=== PATIENT | male | born 1985 | race African-American/Black ===

== ENCOUNTER 2017-11-16 14:05 | Emergency (ER) | payer OTHER ==
[~2017-11-16] VITALS: Ht 144.8 cm; Wt 85.3 kg
[~2017-11-16 14:05] MED LIST: ASPIRIN325 MG PO; ATORVASTATIN CA20 MG PO; Albuterol/Ipratropium Nebulize NEB; CARVEDILOL12.5 MG PO; CARVEDILOL25 MG PO; COREG12.5 MG PO; DIGOXIN125 MCG PO; FAMOTIDINE40 MG PO; FUROSEMIDE40 MG PO; Fluticasone Propionate NS; IBUPROFEN400 MG PO; LASIX20 MG PO; LASIX40 MG PO; LISINOPRIL10 MG PO; LISINOPRIL2.5 MG PO; MEDROL4 MG/DOSE- PO; NITRO-BID1 GM TOP; PEPCID20 MG PO; POTASSIUM CHLO10 ME1 PO; PRINIVIL10 MG PO; [UNRECOGNIZED DRUG - REMARK]
--- OUTSIDE RECORDS SUMMARY | 2017-11-16 14:08 | XMS REPORT ---
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 Allergies, Adverse Reactions, Alerts This patient has no known allergies or adverse reactions. Medications This patient has no known medications. Results Test Description Test Time Test Comments Text Results Atomic Results Result Comments Stress Test - Treadmill ONLY [address] [address] Patient Name : ROXY CARREON MR #: [id number] : 1985 Age/Sex: 31/M Adm Physician : OSIRIS PRICE MD Admit Date : 08/11/17 Location : [facility] Room/Bed : [place] [address] REPORT: Cardiology Report DATE OF STUDY: August 13, 2017 LEXISCAN NUCLEAR STRESS TEST INDICATIONS: Chest pain. DESCRIPTION OF PROCEDURE: After informed consent patient was brought to the stress lab. He was given 10.6 mCi of technetium 99 Myoview, and myocardial perfusion and SPECT images were obtained in the horizontal long-axis, short- axis and vertical long-axis views. Subsequently, patient was given 0.4 mg Lexiscan over 10 seconds. Patient was given 33 mCi of technetium 99 Myoview , and myocardial perfusion SPECT images were obtained in the horizontal long- axis, short-axis and vertical long-axis views. Gated images were also obtained. Patient tolerated the procedure without any complication. REPORT: Baseline EKG shows sinus tachycardia at 105 beats per minute, normal axis, normal intervals, nonspecific ST-T changes. PARAMETERS 1. Resting heart rate is 103 beats per minute. 2. Maximum heart rate is 123 beats per minute. 3. Resting blood pressure is 100/55 mmHg. 4. Maximum blood pressure and 105/60 mmHg. REASON FOR TERMINATION: End point attained. INTERPRETATION 1. Negative chest pain. 2. Negative for arrhythmias. 3. Blood pressure response consistent with Lexiscan. 4. No significant ST-T changes seen during Lexiscan infusion compared to baseline. 5. Analysis of SPECT images reveals patchy radioisotope uptake. both during stress and rest without any significant perfusion defects. CONCLUSION: 1. No evidence significant ischemia or infarction on the study. 2. Mild hypokinesis of the left ventricle is noted. 3. Overall ejection fraction is 47%. Job#: [id number] Signature Date Dictated By: TO VILLAVICENCIO MD Transcribed By: JEMIMA on 08/13/17 <Electronically signed by TO VILLAVICENCIO MD><<Signature on File>>08/19/17 0716 COPY TO: CHEST SINGLE (PORTABLE) [place] [address] Patient Name: ROXY CARREON MR #: [id number] : 1985 Age/Sex: 31/M Req #: [id number] Adm Physician: Ordered by: ROCKY BRUNO MD Report #: [id number] Location: ER Room/Bed: Procedure: [id number] DX/CHEST SINGLE (PORTABLE) Exam Date: 08/11/17 Exam Time: 1020 REPORT STATUS: Signed PROCEDURE: CHEST SINGLE (PORTABLE) COMPARISON: 09/14/2016. INDICATIONS: CHEST PAIN FINDINGS: Lungs are reasonably well inflated. Diffuse interstitial opacities. Cardiomegaly is unchanged relative to 09/14/2016. No definite pleural effusion. Skeletal structures are intact. CONCLUSION: Cardiomegaly with interstitial opacities, likely edema, similar in degree to that noted on 09/14/2016. Dictated by: Radha Schmidt M.D. on 2016 at 11:09 Electronically approved by: Radha Schmidt M.D. on 2016 at 11:09 Dictated By: RADHA SCHMIDT MD [id number] Transcribed By: RUDDY on 08/11/17 1109 COPY TO: ROCKY BRUNO MD
[2017-11-16] MEDS ORDERED: PANTOPRAZOLE 40 MG 10ML VIAL IV STA (14:22)
[2017-11-16] MEDS ORDERED: GLUCAGON FOR INJ 1 MG VIAL IV ONE (14:30)
[2017-11-16 15:19] LABS: BASOPHILS % 0.7 % (0.0-1.0); EOSINOPHILS # (AUTO) 0.1 (0.0-0.4); LYMPHOCYTES # (AUTO) 2.4 (1.0-3.2); LYMPHOCYTES % 43.9 % (18.0-39.1); MEAN CORPUSCULAR HEMOGLOBIN 27.6 pg (28-32); MEAN CORPUSCULAR HGB CONC 32.7 g/dL (31-35); MEAN CORPUSCULAR VOLUME 84.6 fL (81-99); MONOCYTES # (AUTO) 0.5 (0.2-0.8); MONOCYTES % 9.5 % (4.4-11.3); NEUTROPHILS # (AUTO) 2.4 (2.1-6.9); NEUTROPHILS % 43.9 % (38.7-80.0); PLATELET COUNT 279 x10e3/uL (140-360); RED BLOOD COUNT 5.79 x10e6/uL (4.3-5.7); RED CELL DISTRIBUTION WIDTH 14.8 % (11.7-14.4)
[2017-11-16 15:32] LABS: PARTIAL THROMBOPLASTIN TIME 31.7 seconds (23.8-35.5)
[2017-11-16 15:37] LABS: ANION GAP 13.3 mmol/L (8-16); BLOOD UREA NITROGEN 9 mg/dL (7-26); BUN/CREATININE RATIO 13 (6-25); CALCIUM 9.6 mg/dL (8.4-10.2); CARBON DIOXIDE 24 mmol/L (22-29); CHLORIDE 101 mmol/L (98-107); CREATININE, SERUM 0.71 mg/dL (0.72-1.25); EST GLOMERULAR FILTRATION RATE > 60 ML/MIN (60-); GLUCOSE 99 mg/dL (74-118); SODIUM 133 mmol/L (136-145)
[2017-11-16 15:38] LABS: INR 1.28
[2017-11-16 15:39] LABS: POTASSIUM 5.3 mmol/L (3.5-5.1)
[2017-11-16] MEDS ORDERED: AMOXICILLIN250 MG PO (16:22)
[2017-11-16] MEDS ORDERED: lipozene PO (16:22)
[2017-11-16] MEDS ORDERED: TYLENOL WITH C1 EACH PO (16:22)
[2017-11-16] MEDS ORDERED: MORPHINE SULFATE 2 MG/ML SYR IV PRN (17:00)
[2017-11-16] MEDS ORDERED: FENTANYL CITRATE/PF 100MCG/2 ML INJ ONE (17:31)
[2017-11-16] MEDS ORDERED: MIDAZOLAM HCL 2 MG/2 ML VIAL ONE (17:31)
[2017-11-16] MEDS: D5.45%NS/KCL 20MEQ 1,000 ML IV SCH ×2 (17:34→17:40)
[2017-11-16] MEDS: ONDANSETRON HCL INJ 2 MG/ML VIAL IV PRN ×2 (17:35→21:20)
[2017-11-16] MEDS ORDERED: SODIUM CHLORIDE 0.9% 1000ML 1,000 ML IV SCH (17:45)
[2017-11-16] MEDS ORDERED: IBUPROFEN 600 MG TAB PO SCH (18:00)
--- NOTE | 2017-11-16 18:02 | Diagnostic Imaging Report ---
EXAMINATION: Chest, CHEST SINGLE (PORTABLE) INDICATION: Chest pain COMPARISON: Portable chest 08/11/2017 FINDINGS: LINES: None. Heart: Normal cardiac silhouette. Vascular: The pulmonary vasculature is within normal limits. Mediastinum: No mediastinal, hilar, or axillary mass or lymphadenopathy. Lungs: No parenchymal mass. No focal consolidation. Bibasilar atelectasis. Pleura: No pleural effusion. No pneumothorax. Bones: No acute osseous abnormality. Soft tissues: Normal. Impression: No acute radiographic abnormality. Signed by: Dr. Shin Cedillo M.D. on 11/16/2017 5:58 PM
[2017-11-16] MEDS ORDERED: FUROSEMIDE INJ 10 MG/ML 4 ML VIAL IV ONE (18:15)
--- NOTE | 2017-11-16 18:21 | History and Physical ---
PRIMARY CARE PHYSICIAN: Dr. Richy Mota CHIEF COMPLAINT: Painful swallowing. 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 Therefore, the patient came to the hospital. GI services have been consulted. The patient was admitted for further evaluation and management. PAST MEDICAL HISTORY: Hypertension, congestive heart failure, bronchitis, Leong syndrome, paroxysmal atrial fibrillation. PAST SURGICAL HISTORY: Leg and foot surgery. ALLERGIES: PER ELECTRONIC MEDICAL RECORD. FAMILY HISTORY/SOCIAL HISTORY: Patient denies any alcohol, illicits or cigarettes. He lives with his family. He ambulates with a cane. MEDICATIONS: Per electronic medical records. REVIEW OF SYSTEMS: Denies any dizziness or chest pain. PHYSICAL EXAMINATION VITAL SIGNS: Reviewed. GENERAL: A tired-appearing man resting in bed. HEENT: Anicteric. Pupils respond to light. No oral lesions. CARDIOVASCULAR: Normal S1 and S2. LUNGS: He has slightly reduced breath sounds on the right lung field. ABDOMEN: Soft, nontender and nondistended. EXTREMITIES: No edema. SKIN: Dry. PSYCHIATRIC: Normal affect. NEUROLOGICAL: Alert and oriented times 3. Moving all extremities. LABS: Reviewed. MEDICATIONS: Reviewed. ASSESSMENT AND PLAN: A 31-year-old man with: 1. Odynophagia/dysphagia: Gastroenterology consulted. Likely food impaction from the fruit he was eating. 2. Food impaction: As described above. 3. Hypertension: Control blood pressure with intravenous medicines until the airway is clear. 4. Congestive heart failure: Patient appears to be euvolemic. 5. Hyperkalemia: Will recheck and treat as appropriate. 6. Prophylaxis: Will continue proton pump inhibitor and sequential compression devices. 7. Disposition: Await gastroenterology evaluation. Will need esophagogastroduodenoscopy. Job#: [id number]
[2017-11-16] MEDS ORDERED: ATORVASTATIN 20 MG TAB PO SCH (21:00)
[2017-11-16 23:21] VITALS: BP 135/54
[2017-11-17] MEDS ORDERED: FAMOTIDINE 20 MG TAB PO SCH (07:30)
[2017-11-17] MEDS ORDERED: CARVEDILOL 12.5 MG TAB PO SCH (09:00)
[2017-11-17] MEDS ORDERED: ASPIRIN 325 MG TAB PO SCH (09:00)
[2017-11-17] MEDS ORDERED: LISINOPRIL 10 MG TAB PO SCH (09:00)
[2017-11-17] MEDS ORDERED: FUROSEMIDE 40 MG TAB PO SCH (09:00)
[2017-11-17] MEDS ORDERED: POTASSIUM CHLORIDE 10 MEQ TABCR PO SCH (09:00)
== END 2017-11-16 23:24 | disposition short-term general hospital (02) ==
LOC: ER 14:13
DX: T18.128A Food in esophagus causing other injury, initial encounter (principal); X58.XXXA Exposure to other specified factors, initial encounter; Y92.008 Other place in unspecified non-institutional (private) residence as the place of occurrence of the external cause; Q74.8 Other specified congenital malformations of limb(s); I10 Essential (primary) hypertension; I50.9 Heart failure, unspecified; I48.91 Unspecified atrial fibrillation
CPT/HCPCS: 36415; 71045; 80048; 85025; 85610; 85730; 93005; 99284; J1610; J2250; J2270; J2405; J7030

== ENCOUNTER 2017-12-16 22:54 | Inpatient (IN) | payer OTHER ==
[~2017-12-16] VITALS: Ht 144.8 cm; Wt 85.3 kg
[~2017-12-16 22:54] MED LIST changes: +AMOXICILLIN250 MG PO; +TYLENOL WITH C1 EACH PO; +lipozene PO
--- OUTSIDE RECORDS SUMMARY | 2017-12-16 22:57 | XMS REPORT | Continuity of Care Document ---
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 No 08/11/17 6:01pm If yes, is advance directive on file with [facility]? No 08/11/17 6:01pm If not on file with [facility] will patient provide a copy? No 08/11/17 6:01pm Do you have a Directive to Physician? No 11/16/17 3:00pm Do you have a Medical Power of Senior Climate Advisor? No 11/16/17 3:00pm Do you have an out of hospital Do Not Resuscitate Order? No 11/16/17 3:00pm Do you have any special needs we should be aware of? No 11/16/17 3:00pm Do you have a support person here with you today? No 11/16/17 3:00pm Did patient receive Notice of Privacy Practices? Yes 11/16/17 3:00pm Did patient receive patient rights and responsibilities? Yes 11/16/17 3:00pm Problems Medical Problem Onset Date Status Atrial fibrillation 07/20/2015 Acute CHF (congestive heart failure) Unknown Cerumen impaction Unknown Acute Chest pain 03/16/2015 Acute Leong's syndrome 03/16/2015 Acute Pulmonary edema 08/28/2015 Acute Medications Current Home Medications Medication Dose Units Route Directions Days Qty Instructions Start Date Acetaminophen With Codeine (Tylenol With Codeine #3 Tablet) 1 Each Tablet 300 Mg Oral Every 4 Hours Amoxicillin 250 Mg Capsule 500 Mg Oral Three Times A Day 30 Cap Aspirin 325 Mg Tablet 325 Mg Oral Daily Atorvastatin Calcium 20 Mg Tablet 20 Mg Oral Today At 9:00PM Carvedilol (Coreg) 12.5 Mg Tab 25 Mg Oral Twice A Day 30 Days 08/31 Famotidine (Pepcid) 20 Mg Tablet 20 Mg Oral Before Breakfast 30 Days 08/31/15 Furosemide 40 Mg Tablet 40 Mg Oral Twice A Day 30 Tab Ibuprofen 400 Mg Tablet 600 Mg Oral Every 6 Hours for Pain Lipozene 1,500 Mg Oral Daily Lisinopril 10 Mg Tablet 10 Mg Oral Daily 30 Tab Nitroglycerin (Nitro-Bid) 1 Gm Oint...g. 1 Gm Topically Every 12 Hours 14 Days 10 Gram 07/18/16 Potassium Chloride 10 Meq Tab.er.prt 10 Meq Oral Twice A Day Past Home Medications Medication Directions Ordered Status Albuterol/Ipratropium Nebulize 3 Ml Inha, 3 Ml Nebullizer Rt Q6h 09/15/16 Discontinued Carvedilol 25 Mg Tablet, 25 Mg Oral Twice A Day Discontinued Carvedilol (Coreg) 12.5 Mg Tab, 12.5 Mg Oral Twice A Day 07/22/15 Discontinued Carvedilol 12.5 Mg Tablet, 6.25 Mg Oral Twice A Day Discontinued Digoxin 125 Mcg Tablet, 0.125 Mg Oral Daily Discontinued Does Not Remember Names Of Meds , Discontinued Famotidine 40 Mg Tablet, 40 Mg Oral Daily Discontinued Fluticasone Propionate 1 Ea Btl, 0 Ea Nasal Every Morning 07/22/15 Discontinued Furosemide (Lasix) 20 Mg Tablet, 20 Mg Oral Daily 07/22/15 Discontinued Furosemide (Lasix) 40 Mg Tablet, 40 Mg Oral Twice A Day 08/31/15 Discontinued Furosemide (Lasix) 40 Mg Tablet, 40 Mg Oral Daily Discontinued Lisinopril (Prinivil) 10 Mg Tablet, 5 Mg Oral Daily 07/22/15 Discontinued Lisinopril 10 Mg Tablet, 20 Mg Oral Daily Discontinued Lisinopril 2.5 Mg Tablet, 2.5 Mg Oral Twice A Day Discontinued Methylprednisolone (Medrol Dose Pack) 4 Mg/Dose Pack Tab, 1 Pkt Oral Daily Discontinued Social History Social History Problem Response Recorded Date/Time Onset Date Status Hx Psychiatric Problems No 08/11/2017 6:01pm Not Applicable Not Applicable Hx Eating Disorder No 08/11/2017 6:01pm Not Applicable Not Applicable Hx Substance Use Disorder No 08/11/2017 6:01pm Not Applicable Not Applicable Hx Depression No 08/11/2017 6:01pm Not Applicable Not Applicable Hx Alcohol Use No 08/11/2017 6:01pm Not Applicable Not Applicable Hx Substance Use Treatment No 08/11/2017 6:01pm Not Applicable Not Applicable Hx Physical Abuse No 08/11/2017 6:01pm Not Applicable Not Applicable Smoking Status Start Date Stop Date Never Smoker Hospital Discharge Instructions No hospital discharge instruction information available. Plan of Care Discharge Date 11/16/17 11:24pm Disposition TRANS TO OTHER [facility] Condition at Discharge Stable Forms Provided Work/School Excuse Prescriptions See Medication Section Functional Status No functional status information available. Allergies, Adverse Reactions, Alerts No known allergies. Immunizations No immunization information available. Vital Signs Acute Vital Signs Vital Response Date/Time Temperature (Fahrenheit) 98.4 degrees F (97.6 - 99.5) 11/16/2017 11:21pm Pulse Pulse Rate (adult) 85 bpm (60 - 90) 11/16/2017 11:21pm Respiratory Rate 20 bpm (12 - 24) 11/16/2017 11:21pm Blood Pressure 135/54 mm Hg 11/16/2017 11:21pm Height 4 ft 9 in 11/16/2017 2:07pm Weight 188 lb 11/16/2017 2:07pm Body Mass Index 40.7 kg/m^2 11/16/2017 2:07pm Results Laboratory Results Test Name Result Units Flags Reference Collection Date/Time Result Date/ Time Comments Magnesium Level 1.7 MG/DL 1.3-2.1 08/12/2017 6:40am 08/12/2017 7:27am Total Bilirubin 0.2 mg/dL 0.2-1.2 08/11/2017 10:45am 08/11/2017 11: 09am Aspartate Amino Transf (AST/SGOT) 26 IU/L 5-34 08/11/2017 10:45am 08/11 11:09am Alanine Aminotransferase (ALT/SGPT) 20 IU/L 0-55 08/11/2017 10:45am 03/2017 11:09am Total Protein 8.8 g/dL H 6.5-8.1 08/11/2017 10:45am 08/11/2017 11:09am Albumin 4.0 g/dL 3.5-5.0 08/11/2017 10:45am 08/11/2017 11:09am Globulin 4.8 g/dL H 2.3-3.5 08/11/2017 10:45am 08/11/2017 11:09am Albumin/Globulin Ratio 0.8 0.8-2.0 08/11/2017 10:45am 08/11/2017 11: 09am Alkaline Phosphatase 82 IU/L 40-150 08/11/2017 10:45am 08/11/2017 11: 09am Triglycerides Level 88 MG/DL 0-149 08/12/2017 6:40am 08/12/2017 7:27am Cholesterol Level 181 MD/DL 0-199 08/12/2017 6:40am 08/12/2017 7:27am Less than 200 mg/dL Low Risk 201 - 239 mg/dL Borderline Risk 240 mg/dl and greater High Risk LDL Cholesterol 129 MG/DL 60-130 08/12/2017 6:40am 08/12/2017 7:27am HDL Cholesterol 34 MG/DL L 40-60 08/12/2017 6:40am 08/12/2017 7:27am Cholesterol/HDL Ratio 5.3 H 3.9-4.7 08/12/2017 6:40am 08/12/2017 7: 27am B-Type Natriuretic Peptide < 10.0 pg/mL 0-100 08/11/2017 6:30pm 2016 7:22pm Creatine Kinase 195 IU/L 30-200 08/12/2017 6:40am 08/12/2017 7:27am Creatine Kinase MB 1.20 ng/mL 0.00-5.00 08/12/2017 6:40am 08/12/2017 7: 45am Troponin I < 0.001 ng/mL 0-0.300 08/12/2017 6:40am 08/12/2017 7:45am Thyroid Stimulating Hormone (TSH) 1.336 uIU/mL 0.350-4.940 08/12/2017 6: 40am 08/12/2017 7:45am White Blood Count 5.37 x10e3/uL 4.8-10.8 11/16/2017 3:08pm 11/16/2017 3 :22pm Red Blood Count 5.79 x10e6/uL H 4.3-5.7 11/16/2017 3:08pm 11/16/2017 3: 22pm Hemoglobin 16.0 g/dL 14.0-18.0 11/16/2017 3:08pm 11/16/2017 3:22pm Hematocrit 49.0 % 38.2-49.6 11/16/2017 3:08pm 11/16/2017 3:22pm Mean Corpuscular Volume 84.6 fL 81-99 11/16/2017 3:08pm 11/16/2017 3: 22pm Mean Corpuscular Hemoglobin 27.6 pg L 28-32 11/16/2017 3:08pm 2017 3:22pm Mean Corpuscular Hemoglobin Concent 32.7 g/dL 31-35 11/16/2017 3:08pm 11/16/2017 3:22pm Red Cell Distribution Width 14.8 % H 11.7-14.4 11/16/2017 3:08pm 2017 3:22pm Platelet Count 279 x10e3/uL 140-360 11/16/2017 3:08pm 11/16/2017 3: 22pm Neutrophils (%) (Auto) 43.9 % 38.7-80.0 11/16/2017 3:08pm 11/16/2017 3: 22pm Lymphocytes (%) (Auto) 43.9 % H 18.0-39.1 11/16/2017 3:08pm 11/16/2017 3 :22pm Monocytes (%) (Auto) 9.5 % 4.4-11.3 11/16/2017 3:08pm 11/16/2017 3: 22pm Eosinophils (%) (Auto) 2.0 % 0.0-6.0 11/16/2017 3:08pm 11/16/2017 3: 22pm Basophils (%) (Auto) 0.7 % 0.0-1.0 11/16/2017 3:08pm 11/16/2017 3:22pm IM GRANULOCYTES % 0.0 % 0.0-1.0 11/16/2017 3:08pm 11/16/2017 3:22pm Neutrophils # (Auto) 2.4 2.1-6.9 11/16/2017 3:08pm 11/16/2017 3:22pm Lymphocytes # (Auto) 2.4 1.0-3.2 11/16/2017 3:08pm 11/16/2017 3:22pm Monocytes # (Auto) 0.5 0.2-0.8 11/16/2017 3:08pm 11/16/2017 3:22pm Eosinophils # (Auto) 0.1 0.0-0.4 11/16/2017 3:08pm 11/16/2017 3:22pm Basophils # (Auto) 0.0 0.0-0.1 11/16/2017 3:08pm 11/16/2017 3:22pm Absolute Immature Granulocyte (auto 0 x10e3/uL 0-0.1 11/16/2017 3:08pm 11/16/2017 3:22pm Prothrombin Time 15.0 seconds H 11.9-14.5 11/16/2017 3:08pm 11/16/2017 3 :39pm Prothromb Time International Ratio 1.28 11/16/2017 3:08pm 2017 3:39pm Oral Anticoagulant Therapy INR Values: 1. Low Intensity Therapy 1.5 - 2.0 2. Moderate Intensity Therapy 2.0 - 3.0 3. High Intensity Therapy(1) 2.5 - 3.5 4. High Intensity Therapy(2) 3.0 - 4.0 5. Panic Value INR > 5.0 Activated Partial Thromboplast Time 31.7 seconds 23.8-35.5 11/16/2017 3: 08pm 11/16/2017 3:39pm Sodium Level 133 mmol/L L 136-145 11/16/2017 3:08pm 11/16/2017 3:39pm Potassium Level 5.3 mmol/L H 3.5-5.1 11/16/2017 3:08pm 11/16/2017 3: 39pm SLIGHTLY HEMOLYZED Chloride Level 101 mmol/L 98-107 11/16/2017 3:08pm 11/16/2017 3:39pm Carbon Dioxide Level 24 mmol/L 22-29 11/16/2017 3:08pm 11/16/2017 3: 39pm Anion Gap 13.3 mmol/L 8-16 11/16/2017 3:08pm 11/16/2017 3:39pm Blood Urea Nitrogen 9 mg/dL 7-11/16/2017 3:08pm 11/16/2017 3:39pm Creatinine 0.71 mg/dL L 0.72-1.25 11/16/2017 3:08pm 11/16/2017 3:39pm BUN/Creatinine Ratio 13 6-25 11/16/2017 3:08pm 11/16/2017 3:39pm Estimat Glomerular Filtration Rate > 60 ML/MIN 60- 11/16/2017 3:08pm 3:39pm Ranges were taken from the National Kidney Disease Education Program and the National Kid[employer] Foundation literature. Reference ranges: 60 or greater: Normal 16-59 (for 3 consecutive months): Chronic kidney disease 15 or less: Kidney failure Glucose Level 99 mg/dL 74-118 11/16/2017 3:08pm 11/16/2017 3:39pm Calcium Level 9.6 mg/dL 8.4-10.2 11/16/2017 3:08pm 11/16/2017 3:39pm Procedures No procedure information available. Encounters Encounter Location Arrival/Admit Date Discharge/Depart Date Attending Provider Departed Emergency Room [facility] 11/16/17 2:13pm 11:24pm ROCKY BRUNO MD Discharged Inpatient (obs) [facility] 08/11/17 4:32pm 06/22 5:44pm OSIRIS PRICE MD
[2017-12-16] MEDS ORDERED: PANTOPRAZOLE 40 MG 10ML VIAL IV STA (23:22)
[2017-12-16] MEDS ORDERED: MORPHINE SULFATE 2 MG/ML SYR IV STA (23:22)
[2017-12-16] MEDS ORDERED: SODIUM CHLORIDE 0.9% 1000ML 1,000 ML IV STA (23:22)
[2017-12-16] MEDS ORDERED: ONDANSETRON HCL INJ 2 MG/ML VIAL IV STA (23:22)
[2017-12-16 23:48] LABS: BASOPHILS % 0.6 % (0.0-1.0); EOSINOPHILS # (AUTO) 0.1 (0.0-0.4); EOSINOPHILS % 1.3 % (0.0-6.0); HEMATOCRIT 46.3 % (38.2-49.6); HEMOGLOBIN 15.2 g/dL (14.0-18.0); LYMPHOCYTES # (AUTO) 2.2 (1.0-3.2); LYMPHOCYTES % 40.7 % (18.0-39.1); MEAN CORPUSCULAR HEMOGLOBIN 27.4 pg (28-32); MEAN CORPUSCULAR HGB CONC 32.8 g/dL (31-35); MEAN CORPUSCULAR VOLUME 83.4 fL (81-99); MONOCYTES # (AUTO) 0.4 (0.2-0.8); MONOCYTES % 7.9 % (4.4-11.3); NEUTROPHILS # (AUTO) 2.7 (2.1-6.9); NEUTROPHILS % 49.3 % (38.7-80.0); PLATELET COUNT 281 x10e3/uL (140-360); RED BLOOD COUNT 5.55 x10e6/uL (4.3-5.7); RED CELL DISTRIBUTION WIDTH 15.2 % (11.7-14.4)
[2017-12-16 23:57] LABS: INR 1.18; PROTHROMBIN TIME 14.1 seconds (11.9-14.5)
[2017-12-16 23:58] LABS: PARTIAL THROMBOPLASTIN TIME 28.6 seconds (23.8-35.5)
[2017-12-17] VITALS (7 sets, daily range): BP systolic 95–142; BP diastolic 48–72
[2017-12-17 00:10] LABS: ALANINE AMINOTRANSFERASE 14 IU/L (0-55); ALBUMIN 4.4 g/dL (3.5-5.0); ALBUMIN/GLOBULIN RATIO 1.2 (0.8-2.0); ALKALINE PHOSPHATASE 85 IU/L (40-150); AMYLASE 33 U/L (25-125); ANION GAP 12.3 mmol/L (8-16); BLOOD UREA NITROGEN 5 mg/dL (7-26); BUN/CREATININE RATIO 8 (6-25); CARBON DIOXIDE 28 mmol/L (22-29); CHLORIDE 99 mmol/L (98-107); CREATINE KINASE 164 IU/L (30-200); CREATININE, SERUM 0.63 mg/dL (0.72-1.25); EST GLOMERULAR FILTRATION RATE > 60 ML/MIN (60-); GLUCOSE 96 mg/dL (74-118); LIPASE 19 U/L (8-78); MAGNESIUM 1.4 MG/DL (1.3-2.1); POTASSIUM 3.3 mmol/L (3.5-5.1); SODIUM 136 mmol/L (136-145)
[2017-12-17 00:11] LABS: KETONES,URINE TRACE (NEGATIVE); LEUKOCYTE ESTERASE ,URINE 1+ (NEGATIVE); NITRITE,URINE NEGATIVE (NEGATIVE); URINE UROBILINOGEN 0.2 mg/dL (0.2 - 1)
[2017-12-17 00:16] LABS: BILIRUBIN,URINE 1+ (NEGATIVE); CLARITY,URINE SL CLOUDY (CLEAR); COLOR,URINE YELLOW (YELLOW); PROTEIN,URINE DIPSTICK 1+ (NEGATIVE)
[2017-12-17 00:39] LABS: EPITHELIAL CELLS,URINE FEW /LPF; MUCUS,URINE FEW (RARE); RBC,URINE 0-5 /HPF (0-5)
--- NOTE | 2017-12-17 01:02 | Diagnostic Imaging Report ---
CHEST SINGLE (PORTABLE), 12/16/2017 11:22 PM Technique: CHEST SINGLE (PORTABLE) Comparison: 11/16/2017 Clinical history: Abdominal/chest pain Findings: Limited portable view with likely underlying soft tissue attenuation. Stable cardiomediastinal silhouette. Diffuse hazy bilateral opacities are noted. Layering pleural fluid not excluded. Impression: Diffuse bilateral hazy opacities which could reflect edema or infection. Consider follow-up upright PA and lateral. Signed by: Dr Alison Cummings MD on 12/17/2017 12:59 AM
[2017-12-17] MEDS: CLINDAMYCIN PHOS 900MG/ D5W 50 50 ML IV SCH ×2 (02:00→06:06)
[2017-12-17] MEDS ORDERED: POTASSIUM CHLORIDE 20MEQ/15ML UDC PO STA (02:05)
[2017-12-17] MEDS ORDERED: NITROGLYCERIN 0.4 MG SUBL SL PRN (02:15)
[2017-12-17] MEDS ORDERED: MORPHINE SULFATE 2 MG/ML SYR IV PRN (02:15)
[2017-12-17] MEDS ORDERED: ONDANSETRON HCL INJ 2 MG/ML VIAL IV PRN (02:15)
[2017-12-17] MEDS: LEVOFLOXACIN 500MG/D5W 100ML 100 ML IV SCH ×2 (02:26→08:44)
--- NOTE | 2017-12-17 02:39 | Diagnostic Imaging Report ---
EXAM: US GALLBLADDER DATE: 12/17/2017 2:00 AM INDICATION: \S\ABD PAIN, COMPARISON: None TECHNIQUE: Transverse and longitudinal sauceda scale and color doppler sonographic images of the upper abdomen were obtained. FINDINGS: LIVER 16.8 cm in the right midclavicular line, enlarged. Increased echogenicity, normal contour, no masses. GALLBLADDER No stones, sludge, wall-thickening or pericholecystic fluid. Negative sonographic Dooley's sign. BILE DUCTS No intra nor extra-hepatic biliary dilation. Common bile duct measures 0.2 cm PANCREAS: Visualized portions are normal. RIGHT KIDNEY: 9.8 cm Echogenicity: Normal Collecting System: No hydronephrosis Stones: None Cyst/Mass: None VESSELS: Aorta: Visualized portions are within normal size limits Inferior Vena Cava: Visualized portions are normal Main Portal Vein: 0.8 cm, normal size with hepatopetal flow. FREE FLUID: None IMPRESSION: 1. No cholelithiasis or evidence of acute cholecystitis. 2. Hepatic steatosis with hepatomegaly. Signed by: Dr Alison Cummings MD on 12/17/2017 2:36 AM
[2017-12-17] MEDS ORDERED: SODIUM CHLORIDE 0.9% 250ML 250 ML ONE (05:42)
[2017-12-17] MEDS ORDERED: ALBUTEROL/IPRATROPIUM 3 ML NEB NEB SCH (08:30)
[2017-12-17] MEDS: CARVEDILOL 12.5 MG TAB PO SCH ×2 (08:44→16:23)
[2017-12-17] MEDS: GUAIFENESIN 600MG/DEXTROMETHORPHAN 30MG TABSR PO SCH ×3 (08:44→17:04)
[2017-12-17] MEDS: FUROSEMIDE 40 MG TAB PO SCH ×2 (08:44→16:27)
[2017-12-17] MEDS: POTASSIUM CHLORIDE 10 MEQ TABCR PO SCH ×2 (08:44→16:27)
[2017-12-17] MEDS: PANTOPRAZOLE SOD 40 MG TABEC PO SCH ×2 (08:44→16:27)
[2017-12-17] MEDS: LISINOPRIL 10 MG TAB PO SCH (08:44)
[2017-12-17] MEDS: ASPIRIN 325 MG TAB PO SCH (08:44)
[2017-12-17] MEDS ORDERED: ASPIRIN 81 MG ENTERIC COATED PO SCH (09:00)
[2017-12-17] MEDS ORDERED: PANTOPRAZOLE 40 MG 10ML VIAL IV SCH (09:00)
[2017-12-17 09:05] LABS: CREATINE KINASE 113 IU/L (30-200)
[2017-12-17] MEDS ORDERED: POTASSIUM CHLORIDE 20 MEQ TAB CR PO STA (10:10)
[2017-12-17] MEDS ORDERED: ACETAMINOPHEN 325 MG TAB PO PRN (16:15)
[2017-12-17 17:12] LABS: CREATINE KINASE 94 IU/L (30-200)
[2017-12-17] MEDS ORDERED: ATORVASTATIN 20 MG TAB PO SCH (21:00)
[2017-12-18] VITALS: BP 103/70
[2017-12-18] MEDS: GUAIFENESIN 600MG/DEXTROMETHORPHAN 30MG TABSR PO SCH ×3 (00:20→11:08)
[2017-12-18 04:00] VITALS: BP 106/58
[2017-12-18 07:06] LABS: ALANINE AMINOTRANSFERASE 11 IU/L (0-55); ALBUMIN 3.7 g/dL (3.5-5.0); ALKALINE PHOSPHATASE 69 IU/L (40-150); ANION GAP 11.6 mmol/L (8-16); BLOOD UREA NITROGEN 13 mg/dL (7-26); BUN/CREATININE RATIO 17 (6-25); CALCIUM 8.6 mg/dL (8.4-10.2); CARBON DIOXIDE 26 mmol/L (22-29); CHLORIDE 103 mmol/L (98-107); CHOL/HDL RATIO 4.5 (3.9-4.7); CHOLESTEROL 153 MD/DL (0-199); CREATININE, SERUM 0.78 mg/dL (0.72-1.25); EST GLOMERULAR FILTRATION RATE > 60 ML/MIN (60-); GLUCOSE 105 mg/dL (74-118); HDL CHOLESTEROL 34 MG/DL (40-60); LDL CHOLESTEROL 101 MG/DL (60-130); MAGNESIUM 1.4 MG/DL (1.3-2.1); POTASSIUM 3.6 mmol/L (3.5-5.1); SODIUM 137 mmol/L (136-145); TRIGLYCERIDES 88 MG/DL (0-149)
[2017-12-18 07:29] VITALS: BP 102/55
[2017-12-18 07:30] VITALS: BP 102/55
[2017-12-18] MEDS: LISINOPRIL 10 MG TAB PO SCH (07:45)
[2017-12-18] MEDS: CARVEDILOL 12.5 MG TAB PO SCH (07:45)
[2017-12-18] MEDS: PANTOPRAZOLE SOD 40 MG TABEC PO SCH (08:01)
[2017-12-18] MEDS: LEVOFLOXACIN 500MG/D5W 100ML 100 ML IV SCH (08:01)
[2017-12-18] MEDS: FUROSEMIDE 40 MG TAB PO SCH (08:01)
[2017-12-18] MEDS: POTASSIUM CHLORIDE 10 MEQ TABCR PO SCH (08:01)
[2017-12-18] MEDS: ASPIRIN 325 MG TAB PO SCH (08:01)
[2017-12-18 11:32] VITALS: BP 122/57
[2017-12-18] MEDS ORDERED: LEVAQUIN500 MG PO (12:33)
[2017-12-18] MEDS ORDERED: MUCINEX DM ER1 EACH PO (12:33)
[2017-12-18] MEDS ORDERED: TYLENOL WITH C1 EACH PO (12:33)
[2017-12-18 12:49] LABS: BASOPHILS % 0.7 % (0.0-1.0); EOSINOPHILS # (AUTO) 0.1 (0.0-0.4); EOSINOPHILS % 1.8 % (0.0-6.0); HEMATOCRIT 44.5 % (38.2-49.6); HEMOGLOBIN 14.5 g/dL (14.0-18.0); LYMPHOCYTES # (AUTO) 2.6 (1.0-3.2); LYMPHOCYTES % 42.2 % (18.0-39.1); MEAN CORPUSCULAR HEMOGLOBIN 27.7 pg (28-32); MEAN CORPUSCULAR HGB CONC 32.6 g/dL (31-35); MEAN CORPUSCULAR VOLUME 84.9 fL (81-99); MONOCYTES # (AUTO) 0.7 (0.2-0.8); NEUTROPHILS # (AUTO) 2.7 (2.1-6.9); NEUTROPHILS % 44.1 % (38.7-80.0); PLATELET COUNT 258 x10e3/uL (140-360); RED BLOOD COUNT 5.24 x10e6/uL (4.3-5.7); RED CELL DISTRIBUTION WIDTH 15.9 % (11.7-14.4)
--- NOTE | 2017-12-18 20:27 | Discharge Summary ---
AUDIO CUTTING IN AND OUT IN MULTIPLE PORTIONS OF THE REPORT ADMISSION DIAGNOSES 1. 2. Hypertension. 3. Atrial fibrillation. 4. Gastroesophageal reflux disease. 5. Pneumonia. DISCHARGE DIAGNOSES 1. 2. Hypertension. 3. Atrial fibrillation. 4. Gastroesophageal reflux disease. 5. Pneumonia. 6. Ruled out myocardial infarction. 7. Ruled out pancreatitis. 8. Ruled out gastritis. HISTORY: Patient has a history of hypertension, CHF, hyperlipidemia, Leong syndrome, AFib, and GERD with a surgical history of right knee surgery. HOSPITAL COURSE: A 31-year-old male presents with chest pain that radiates to the left flank and around the back and is also associated with nausea that began yesterday. He rates the pain 9/10, achy, and intermittent. He was able to eat yesterday and in the morning of admission, but with no complaint. On admission, patient had troponins drawn, which were negative times 2. EKG that showed normal sinus rhythm with sinus arrhythmia. Chest x-ray which showed bilateral opacities and a gallbladder ultrasound, which showed no cholelithiasis or evidence of acute cholecystitis. Echo showed an EF of 45% to 50%. Patient started on home medications of Lasix, started on Levaquin IV, Mucinex, and DuoNebs for the pneumonia. Patient able to tolerate p.o., not having diarrhea. The pain continued to be intermittent the patient . He was sent home on for muscle pain, Mucinex, and remainder of the Levaquin antibiotic course. Patient was sent home with family, where he lives, and uses a cane to get around. He is independent, so . Followup with primary care physician this week. Dictated by: Sweetie Montejo NP OSIRIS PRICE MD Job#: [id number] CQ
== END 2017-12-18 14:24 | disposition home or self-care (01) | DRG 195 ==
LOC: ER 22:54 → ERHOLD 12-17 02:36 → MED/SURG3 12-17 03:25
PROVIDERS: ADMIT Internal Medicine; ATTEND Internal Medicine
DX: J18.9 Pneumonia, unspecified organism (principal); I11.0 Hypertensive heart disease with heart failure; I50.9 Heart failure, unspecified; E78.5 Hyperlipidemia, unspecified; I48.91 Unspecified atrial fibrillation; K21.9 Gastro-esophageal reflux disease without esophagitis; Q74.8 Other specified congenital malformations of limb(s); Z79.82 Long term (current) use of aspirin
CPT/HCPCS: 36415; 71045; 76705; 80053; 80061; 81001; 82150; 82550; 82553; 83605; 83690; 83735; 83880; 84484; 85025; 85610; 85730; 87040; 87071; 87086; 87205; 87400; 93005; 93306; 99284; J1956; J2270; J2405; J7050

== ENCOUNTER 2018-01-16 21:36 | Emergency (ER) | payer OTHER ==
[~2018-01-16] VITALS: Ht 144.8 cm; Wt 85.3 kg
[~2018-01-16 21:36] MED LIST changes: +LEVAQUIN500 MG PO; +MUCINEX DM ER1 EACH PO
--- OUTSIDE RECORDS SUMMARY | 2018-01-16 21:39 | XMS REPORT | Continuity of Care Document ---
Author Author [facility] Organization [facility] Address [address] [place] [address] Phone Unavailable Care Team Providers Care Thaw Shed Heater Tender Name Role Phone AUGUSTINE OWENS DO PCP Insurance Providers Guarantor Roxy Bates Address [address] [place] [address] Email PT [facility] [employer] Policy Number [id number] Subscriber's Name Roxy Bates Relationship 18 Self / Same As Patient Group Name UNEMPLOYED Effective Date 11 Advance Directives Directive Response Recorded Date/Time Does the patient have an advance directive? No 12/17/17 4:10am If yes, is advance directive on file with [facility]? No 12/17/17 4:10am If not on file with [facility] will patient provide a copy? No 12/17/17 4:10am Do you have a Directive to Physician? No 12/17/17 2:30am Do you have a Medical Power of Forestry Aid Technician? No 12/17/17 2:30am Do you have an out of hospital Do Not Resuscitate Order? No 12/17/17 2:30am Do you have any special needs we should be aware of? No 12/17/17 2:30am Do you have a support person here with you today? No 12/17/17 2:30am Did patient receive Notice of Privacy Practices? Yes 12/17/17 2:30am Did patient receive patient rights and responsibilities? 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 Pneumonia, aspiration Unknown Pulmonary edema 08/28/2015 Acute Medications Current Home Medications Medication Dose Units Route Directions Days Qty Instructions Start Date Acetaminophen With Codeine (Tylenol With Codeine #3 Tablet) 1 Each Tablet 300 Mg Oral Every 8 Hours as needed for Pain 14 Days 12/18/17 Aspirin 325 Mg Tablet 325 Mg Oral Daily Atorvastatin Calcium 20 Mg Tablet 20 Mg Oral Today At 9:00PM Carvedilol (Coreg) 12.5 Mg Tab 25 Mg Oral Twice A Day 30 Days 08/31 Famotidine (Pepcid) 20 Mg Tablet 20 Mg Oral Before Breakfast 30 Days 08/31/15 Furosemide 40 Mg Tablet 40 Mg Oral Twice A Day 30 Tab Guaifenesin/Dextromethorphan (Mucinex Dm Er 600-30 Mg Tablet) 1 Each Tab.er.12h 1 Each Oral Every 6 Hours as needed for Nasal Congestion 7 Days 12/18/17 Levofloxacin (Levaquin) 500 Mg Tablet 500 Mg Oral Daily 4 Days Lisinopril 10 Mg Tablet 10 Mg Oral Daily 30 Tab Nitroglycerin (Nitro-Bid) 1 Gm Oint...g. 1 Gm Topically Every 12 Hours 14 Days 10 Gram 07/18/16 Potassium Chloride 10 Meq Tab.er.prt 10 Meq Oral Twice A Day Past Home Medications Medication Directions Ordered Status Acetaminophen With Codeine (Tylenol With Codeine #3 Tablet) 1 Each Tablet, 300 Mg Oral Every 4 Hours Discontinued Albuterol/Ipratropium Nebulize 3 Ml Inha, 3 Ml Nebullizer Rt Q6h 09/15/16 Discontinued Amoxicillin 250 Mg Capsule, 500 Mg Oral Three Times A Day Discontinued Carvedilol 25 Mg Tablet, 25 Mg [...] Mg Tablet, 40 Mg Oral Daily Discontinued Ibuprofen 400 Mg Tablet, 600 Mg Oral Every 6 Hours for Pain Discontinued Lipozene , 1500 Mg Oral Daily Discontinued Lisinopril (Prinivil) 10 Mg Tablet, 5 Mg Oral Daily 07/22/15 Discontinued Lisinopril 10 Mg Tablet, 20 Mg Oral Daily Discontinued Lisinopril 2.5 Mg Tablet, 2.5 Mg Oral Twice A Day Discontinued Methylprednisolone (Medrol Dose Pack) 4 Mg/Dose Pack Tab, 1 Pkt Oral Daily Discontinued Social History Social History Problem Response Recorded Date/Time Onset Date Status Hx Psychiatric Problems No 12/17/2017 4:10am Not Applicable Not Applicable Hx Eating Disorder No 12/17/2017 4:10am Not Applicable Not Applicable Hx Substance Use Disorder No 12/17/2017 4:10am Not Applicable Not Applicable Hx Depression No 12/17/2017 4:10am Not Applicable Not Applicable Hx Alcohol Use No 12/17/2017 4:10am Not Applicable Not Applicable Hx Substance Use Treatment No 12/17/2017 4:10am Not Applicable Not Applicable Hx Physical Abuse No 12/17/2017 4:10am Not Applicable Not Applicable Smoking Status Start Date Stop Date Never Smoker Hospital Discharge Instructions No hospital discharge instruction information available. Plan of Care Discharge Date 12/18/17 2:24pm Disposition HOME, SELF-CARE Instructions/Education Provided Abdominal Pain - Adult Chest Pain - Noncardiac Congestive Heart Failure Prescriptions See Medication Section Additional Instructions/Education RESUME DIET AND ACTIVITIES TOLERATED. FOLLOW UP WITH YOUR PRIMARY CARE PROVIDER IN 1-2 WEEKS. Functional Status Query Response Date Recorded Assistive Devices Straight Cane Standard Walker December 17, 2017 4:17am Ambulation Ability Standby Assistance December 17, 2017 4:17am Toileting Ability Moderate Assistance December 18, 2017 1:26pm Allergies, Adverse Reactions, Alerts No known allergies. Immunizations No immunization information available. Vital Signs Acute Vital Signs Vital Response Date/Time Temperature (Fahrenheit) 96.9 degrees F (97.6 - 99.5) 12/18/2017 11:32am Pulse Pulse Rate (adult) 92 bpm (60 - 90) 12/18/2017 12:20pm Respiratory Rate 18 bpm (12 - 24) 12/18/2017 12:20pm Blood Pressure 122/57 mm Hg 12/18/2017 11:32am Height 4 ft 9 in 12/16/2017 10:57pm Weight 188 lb 12/17/2017 4:10am Body Mass Index 40.7 kg/m^2 12/17/2017 4:10am Results Laboratory Results Test Name Result Units Flags Reference Collection Date/Time Result Date/ Time Comments Thyroid Stimulating Hormone (TSH) 1.336 uIU/mL 0.350-4.940 08/12/2017 6: 40am 08/12/2017 7:45am White Blood Count 6.11 x10e3/uL 4.8-10.8 12/18/2017 6:12/18/2017 12:55pm Red Blood Count 5.24 x10e6/uL 4.3-5.7 12/18/2017 6:12/18/2017 12: 55pm Hemoglobin 14.5 g/dL 14.0-18.0 12/18/2017 6:12/18/2017 12:55pm Hematocrit 44.5 % 38.2-49.6 12/18/2017 6:12/18/2017 12:55pm Mean Corpuscular Volume 84.9 fL 81-99 12/18/2017 6:12/18/2017 12: 55pm Mean Corpuscular Hemoglobin 27.7 pg L 28-32 12/18/2017 6:2017 12:55pm Mean Corpuscular Hemoglobin Concent 32.6 g/dL 31-35 12/18/2017 6:12/18/2017 12:55pm Red Cell Distribution Width 15.9 % H 11.7-14.4 12/18/2017 6:2017 12:55pm Platelet Count 258 x10e3/uL 140-360 12/18/2017 6:12/18/2017 12: 55pm Neutrophils (%) (Auto) 44.1 % 38.7-80.0 12/18/2017 6:12/18/2017 12 :55pm Lymphocytes (%) (Auto) 42.2 % H 18.0-39.1 12/18/2017 6:12/18/2017 12:55pm Monocytes (%) (Auto) 11.0 % 4.4-11.3 12/18/2017 6:12/18/2017 12: 55pm Eosinophils (%) (Auto) 1.8 % 0.0-6.0 12/18/2017 6:12/18/2017 12: 55pm Basophils (%) (Auto) 0.7 % 0.0-1.0 12/18/2017 6:12/18/2017 12: 55pm IM GRANULOCYTES % 0.2 % 0.0-1.0 12/18/2017 6:12/18/2017 12:55pm Neutrophils # (Auto) 2.7 2.1-6.9 12/18/2017 6:12/18/2017 12: 55pm Lymphocytes # (Auto) 2.6 1.0-3.2 12/18/2017 6:12/18/2017 12: 55pm Monocytes # (Auto) 0.7 0.2-0.8 12/18/2017 6:12/18/2017 12:55pm Eosinophils # (Auto) 0.1 0.0-0.4 12/18/2017 6:12/18/2017 12: 55pm Basophils # (Auto) 0.0 0.0-0.1 12/18/2017 6:12/18/2017 12:55pm Absolute Immature Granulocyte (auto 0.01 x10e3/uL 0-0.1 12/18/2017 6: 12/18/2017 12:55pm Prothrombin Time 14.1 seconds 11.9-14.5 12/16/2017 11:40pm 12/16/2017 11:59pm Prothromb Time International Ratio 1.18 12/16/2017 11:40pm 2017 11:59pm Oral Anticoagulant Therapy INR Values: 1. Low Intensity Therapy 1.5 - 2.0 2. Moderate Intensity Therapy 2.0 - 3.0 3. High Intensity Therapy(1) 2.5 - 3.5 4. High Intensity Therapy(2) 3.0 - 4.0 5. Panic Value INR > 5.0 Activated Partial Thromboplast Time 28.6 seconds 23.8-35.5 12/16/2017 11 :40pm 12/16/2017 11:59pm Urine Color YELLOW YELLOW 12/16/2017 11:22pm 12/17/2017 12:16am Urine Clarity SL CLOUDY H CLEAR 12/16/2017 11:pm 12/17/2017 12:16am Urine Specific [place] 1.020 1.010-1.025 12/16/2017 11:22pm 2017 12:16am Urine pH 5 5 - 7 12/16/2017 11:22pm 12/17/2017 12:16am Urine Leukocyte Esterase 1+ H NEGATIVE 12/16/2017 11:22pm 12/17/2017 12:16am Urine Nitrite NEGATIVE NEGATIVE 12/16/2017 11:pm 12/17/2017 12: 16am Urine Protein 1+ H NEGATIVE 12/16/2017 11:pm 12/17/2017 12:16am Urine Glucose (UA) NEGATIVE NEGATIVE 12/16/2017 11:22pm 12/17/2017 12 :16am Urine Ketones TRACE H NEGATIVE 12/16/2017 11:22pm 12/17/2017 12:16am Urine Urobilinogen 0.2 mg/dL 0.2 - 1 12/16/2017 11:22pm 12/17/2017 12: 16am Urine Bilirubin 1+ H NEGATIVE 12/16/2017 11:pm 12/17/2017 12:16am Confirmatory test currently unavailable. False positive results may occur. Urine Blood NEGATIVE NEGATIVE 12/16/2017 11:22pm 12/17/2017 12:16am Urine WBC 6-10 /HPF H 0-5 12/16/2017 11:pm 12/17/2017 12:39am Urine RBC 0-5 /HPF 0-5 12/16/2017 11:22pm 12/17/2017 12:39am Urine Bacteria NONE /HPF NONE 12/16/2017 11:22pm 12/17/2017 12:39am Urine Epithelial Cells FEW /LPF NONE 12/16/2017 11:22pm 12/17/2017 12: 39am Urine Mucus FEW H RARE 12/16/2017 11:22pm 12/17/2017 12:39am Sodium Level 137 mmol/L 136-145 12/18/2017 6:1412/18/2017 7:08am Potassium Level 3.6 mmol/L 3.5-5.1 12/18/2017 6:1412/18/2017 7:08am Chloride Level 103 mmol/L 98-107 12/18/2017 6:1412/18/2017 7:08am Influenza Virus Types A,B Antigen NEGATIVE NEGATIVE 12/17/2017 2:30am 12/17/2017 3:14am Carbon Dioxide Level 26 mmol/L 22-29 12/18/2017 6:1412/18/2017 7: 08am Anion Gap 11.6 mmol/L 8-16 12/18/2017 6:1412/18/2017 7:08am Blood Urea Nitrogen 13 mg/dL 7-26 12/18/2017 6:1412/18/2017 7:08am Creatinine 0.78 mg/dL 0.72-1.25 12/18/2017 6:1412/18/2017 7:08am BUN/Creatinine Ratio 17 6-25 12/18/2017 6:1412/18/2017 7:08am Estimat Glomerular Filtration Rate > 60 ML/MIN 60- 12/18/2017 6: 7:08am Ranges were taken from the National Kidney Disease Education Program and the National Kidney Foundation literature. Reference ranges: 60 or greater: Normal 16-59 (for 3 consecutive months): Chronic kidney disease 15 or less: Kidney failure Glucose Level 105 mg/dL 74-118 12/18/2017 6:1412/18/2017 7:08am Calcium Level 8.6 mg/dL 8.4-10.2 12/18/2017 6:1412/18/2017 7:08am Lactic Acid Level 7.8 MG/DL 4.5-19.8 12/17/2017 1:40am 12/17/2017 2: 25am Magnesium Level 1.4 MG/DL 1.3-2.1 12/18/2017 6:12/18/2017 7:08am Total Bilirubin 0.4 mg/dL 0.2-1.2 12/18/2017 6:12/18/2017 7:08am Aspartate Amino Transf (AST/SGOT) 13 IU/L 5-34 12/18/2017 6:2017 7:08am Alanine Aminotransferase (ALT/SGPT) 11 IU/L 0-55 12/18/2017 6: 7:08am Total Protein 7.3 g/dL 6.5-8.1 12/18/2017 6:12/18/2017 7:08am Albumin 3.7 g/dL 3.5-5.0 12/18/2017 6:12/18/2017 7:08am Globulin 3.6 g/dL H 2.3-3.5 12/18/2017 6:12/18/2017 7:08am Albumin/Globulin Ratio 1.0 0.8-2.0 12/18/2017 6:12/18/2017 7: 08am Alkaline Phosphatase 69 IU/L 40-150 12/18/2017 6:12/18/2017 7: 08am Triglycerides Level 88 MG/DL 0-149 12/18/2017 6:12/18/2017 7:08am Cholesterol Level 153 MD/DL 0-199 12/18/2017 6:12/18/2017 7:08am Less than 200 mg/dL Low Risk 201 - 239 mg/dL Borderline Risk 240 mg/dl and greater High Risk LDL Cholesterol 101 MG/DL 60-130 12/18/2017 6:12/18/2017 7:08am HDL Cholesterol 34 MG/DL L 40-60 12/18/2017 6:12/18/2017 7:08am Cholesterol/HDL Ratio 4.5 3.9-4.7 12/18/2017 6:12/18/2017 7: 08am B-Type Natriuretic Peptide < 10.0 pg/mL 0-100 12/16/2017 11:40pm 2017 12:15am Creatine Kinase 94 IU/L 30-200 12/17/2017 4:45pm 12/17/2017 5:14pm Creatine Kinase MB 1.60 ng/mL 0-5.0 12/17/2017 4:45pm 12/17/2017 5: 20pm Troponin I < 0.001 ng/mL 0-0.300 12/17/2017 4:45pm 12/17/2017 5:20pm Amylase Level 33 U/L 25-125 12/16/2017 11:40pm 12/17/2017 12:15am Lipase 19 U/L 8-78 12/16/2017 11:40pm 12/17/2017 12:15am Microbiology Results Procedure Source Organism/Result Collection Date/Time Result Date/Time Result Status Blood Culture Blood NO GROWTH AFTER 24 HOURS 12/17/2017 1:40am 12/18/2017 2:08am Preliminary Procedures Procedure Status Date Provider(s) EMERGENCY DEPT VISIT Completed 11/16/17 US gallbladder Active 12/17/17 GRZEGORZ FERRARO MD Encounters Encounter Location Arrival/Admit Date Discharge/Depart Date Attending Provider Discharged Inpatient [facility] 12/17/17 2:36am 12/18/17 2:24pm OSIRIS PRICE MD Departed Emergency Room [facility] 11/16/17 2:13pm 11:24pm ROCKY BRUNO MD Discharged Inpatient (obs) [facility] 08/11/17 4:32pm 06/22 5:44pm OSIRIS PRICE MD
--- OUTSIDE RECORDS SUMMARY | 2018-01-16 21:39 | XMS REPORT | Clinical Summary ---
Author Author [facility] Address Unknown Phone Unavailable Care Team Providers Care Bank Guard Name Role Phone PCP Unavailable Allergies No Known Allergies Current Medications Prescription Sig. Disp. Refills Start End Date Status Date famotidine (PEPCID) 20 MG Take 20 mg by mouth 2 Active tablet (two) times daily. nitroglycerin (NITROSTAT) Place 0.5 inches onto the Active 2 % ointment skin 3 (three) times daily as needed . atorvastatin (LIPITOR) 20 Take 20 mg by mouth Active MG tablet daily. potassium chloride SA Take 10 mEq by mouth 2 Active (K-DUR,KLOR-CON) 10 MEQ (two) times daily. tablet aspirin 325 MG tablet Take 325 mg by mouth Active daily. ibuprofen (ADVIL,MOTRIN) Take 400 mg by mouth Active 400 MG tablet every 6 (six) hours as needed for Pain. furosemide (LASIX) 40 MG Take 40 mg by mouth 2 Active tablet (two) times daily. lisinopril Take 10 mg by mouth Active (PRINIVIL,ZESTRIL) 10 MG daily. tablet acetaminophen-codeine Take 1 tablet by mouth Active (TYLENOL #3) 300-30 mg every 4 (four) hours as per tablet needed for Pain. amoxicillin (AMOXIL) 250 Take 250 mg by mouth 3 11/17/19 Discontin MG capsule (three) times daily. 18 ued Active Problems Problem Noted Date Food impaction of esophagus 11/17/2017 Food impaction of esophagus, initial encounter 11/17/2017 Encounters Date Type Specialty Care Team Description 11/17/2017 Anesthesia Gastroenterology Shavon Hirsch MD Event 11/17/2017 Procedure Pass Gastroenterology 11/17/2017 Surgery Gastroenterology Luis Coreas UPPER ENDOSCOPY MD [place] 11/16/2017 [facility] General Internal Medicine Ryan Vallecillo, Food impaction of - Encounter MD esophagus, initial 11/17/2017 Guadalupe Celaya MD encounter after 01/15/2017 Social History Tobacco Use Types Packs/Day Years Used Date Never Smoker Smokeless Tobacco: Never Used Sex Assigned at Date Recorded Not on file Last Filed Vital Signs Vital Sign Reading Time Taken Blood Pressure 115/59 11/17/2017 12:39 PM [employer] Pulse 114 11/17/2017 12:39 PM [employer] Temperature 36.4 C (97.6 F) 11/17/2017 12:39 PM [employer] Respiratory Rate 18 11/17/2017 12:39 PM [employer] Oxygen Saturation 96% 11/17/2017 12:39 PM [employer] Inhaled Oxygen - - Concentration Weight - - Height - - Body Mass Index - - Plan of Treatment Not on file Procedures Procedure Name Priority Date/Time Associated Diagnosis Comments UPPER ENDOSCOPY 11/17/2017 food impaction 12:15 AM [employer] after 01/15/2017 Results * EKG-SCANNED (11/18/2017 12:41 PM) * RHYTHM STRIP - SCAN (11/18/2017 12:40 PM) * FL esoph swallow funct with cine video (11/17/2017 9:30 AM) Specimen Performing Laboratory GE RIS Narrative FINAL REPORT Esophagram History:perforation post EGD (please do Gastrografin esophagram) Technique: Esophagram was performed using Gastrografin. Total fluoroscopy time: 0.65 minutes Total number of films: 12 Findings: There is no evidence of esophageal obstruction or perforation. There is no stricture. There is no hiatus hernia or esophageal diverticulum. Assessment of the gastric fundal region appear unremarkable. Impression: No evidence of esophageal perforation or obstruction. Signed: Delma Schumacher MD Report Verified Date/Time:11/17/2017 09:46:44 Reading Location: [address] Ortho Consult Reading Room Procedure Note Interface, External Ris In - 01/02/2018 10:25 PM CDT FINAL REPORT Esophagram History: perforation post EGD (please do Gastrografin esophagram) Technique: Esophagram was performed using Gastrografin. Total fluoroscopy time: 0.65 minutes Total number of films: 12 Findings: There is no evidence of esophageal obstruction or perforation. There is no stricture. There is no hiatus hernia or esophageal diverticulum. Assessment of the gastric fundal region appear unremarkable. Impression: No evidence of esophageal perforation or obstruction. Signed: Delma Schumacher MD Report Verified Date/Time: 11/17/2017 09:46:44 Reading Location: [address] Consult Reading Room * REPORT OF PROCEDURE - ENDOSCOPY URL (11/17/2017 2:04 AM) after 01/15/2017
[2018-01-17 00:33] LABS: BASOPHILS % 0.6 % (0.0-1.0); EOSINOPHILS # (AUTO) 0.1 (0.0-0.4); EOSINOPHILS % 1.6 % (0.0-6.0); HEMOGLOBIN 14.3 g/dL (14.0-18.0); LYMPHOCYTES % 45.8 % (18.0-39.1); MEAN CORPUSCULAR HGB CONC 33.3 g/dL (31-35); MEAN CORPUSCULAR VOLUME 84.1 fL (81-99); MONOCYTES # (AUTO) 0.5 (0.2-0.8); MONOCYTES % 7.5 % (4.4-11.3); NEUTROPHILS # (AUTO) 2.9 (2.1-6.9); NEUTROPHILS % 44.5 % (38.7-80.0); PLATELET COUNT 282 x10e3/uL (140-360); RED BLOOD COUNT 5.11 x10e6/uL (4.3-5.7); RED CELL DISTRIBUTION WIDTH 15.7 % (11.7-14.4)
[2018-01-17 00:37] LABS: CLARITY,URINE CLEAR (CLEAR); COLOR,URINE YELLOW (YELLOW); LEUKOCYTE ESTERASE ,URINE NEGATIVE (NEGATIVE); NITRITE,URINE NEGATIVE (NEGATIVE); PROTEIN,URINE DIPSTICK TRACE (NEGATIVE)
[2018-01-17 00:38] LABS: BILIRUBIN,URINE NEGATIVE (NEGATIVE); KETONES,URINE NEGATIVE (NEGATIVE); URINE UROBILINOGEN 0.2 mg/dL (0.2 - 1)
[2018-01-17 00:47] LABS: ALANINE AMINOTRANSFERASE 12 IU/L (0-55); ALBUMIN 3.9 g/dL (3.5-5.0); ALKALINE PHOSPHATASE 81 IU/L (40-150); AMYLASE 35 U/L (25-125); ANION GAP 14.1 mmol/L (8-16); BLOOD UREA NITROGEN 13 mg/dL (7-26); BUN/CREATININE RATIO 21 (6-25); CALCIUM 9.5 mg/dL (8.4-10.2); CARBON DIOXIDE 24 mmol/L (22-29); CHLORIDE 104 mmol/L (98-107); CREATININE, SERUM 0.63 mg/dL (0.72-1.25); EST GLOMERULAR FILTRATION RATE > 60 ML/MIN (60-); GLUCOSE 93 mg/dL (74-118); LIPASE 33 U/L (8-78); POTASSIUM 4.1 mmol/L (3.5-5.1); SODIUM 138 mmol/L (136-145)
[2018-01-17 00:51] LABS: BACTERIA,URINE RARE /HPF; EPITHELIAL CELLS,URINE RARE /LPF; RBC,URINE 0-5 /HPF (0-5)
[2018-01-17 01:22] LABS: ALBUMIN/GLOBULIN RATIO 1.1 (0.8-2.0)
--- NOTE | 2018-01-17 01:38 | Diagnostic Imaging Report ---
EXAM: CT ABDOMEN AND PELVIS without IV CONTRAST INDICATION: Abdominal pain, shortness of breath, right upper quadrant/right rib pain COMPARISON: None TECHNIQUE: The abdomen and pelvis were scanned using a multidetector helical scanner. Coronal and sagittal reformations were obtained. Routine protocol performed. IV Contrast: None Oral Contrast: None CTDIvol has been reviewed. It is below the limits set by the Radiation Protocol Committee (RPC). FINDINGS: LOWER THORAX: No consolidations LIVER: No masses BILIARY: Normal gallbladder. No ductal dilation. SPLEEN: No masses PANCREAS: No masses ADRENALS: No nodules RIGHT KIDNEY: No nephroureterolithiasis or hydronephrosis. LEFT KIDNEY: No nephroureterolithiasis or hydronephrosis. GI TRACT: No wall thickening or obstruction. Normal appendix. VESSELS: Unremarkable PERITONEUM/RETROPERITONEUM: No free air or fluid LYMPH NODES: No lymphadenopathy REPRODUCTIVE ORGANS: Normal BLADDER: Normal SOFT TISSUES: Normal BONES: Chronic bilateral hip dysplasia. IMPRESSION: No acute findings to explain patient's abdominal pain. Signed by: Dr. Vilma Vásquez M.D. on 01/17/2018 1:34 AM
== END 2018-01-17 04:26 | disposition home or self-care (01) ==
LOC: ER 21:36
DX: R10.31 Right lower quadrant pain (principal); R11.0 Nausea; K80.50 Calculus of bile duct without cholangitis or cholecystitis without obstruction; I10 Essential (primary) hypertension; E11.9 Type 2 diabetes mellitus without complications; E78.5 Hyperlipidemia, unspecified; I50.9 Heart failure, unspecified; Q74.8 Other specified congenital malformations of limb(s)
CPT/HCPCS: 36415; 74176; 80053; 81001; 82150; 83690; 85025; 93005; 99284

== ENCOUNTER 2018-03-21 07:55 | Observation (INO) | payer OTHER ==
[~2018-03-21] VITALS: Ht 144.8 cm; Wt 71.4 kg
[2018-03-21 09:08] LABS: BASOPHILS % 0.4 % (0.0-1.0); EOSINOPHILS # (AUTO) 0.1 (0.0-0.4); EOSINOPHILS % 1.5 % (0.0-6.0); HEMATOCRIT 41.8 % (38.2-49.6); HEMOGLOBIN 13.9 g/dL (14.0-18.0); LYMPHOCYTES # (AUTO) 3.1 (1.0-3.2); LYMPHOCYTES % 46.4 % (18.0-39.1); MEAN CORPUSCULAR HEMOGLOBIN 28.8 pg (28-32); MEAN CORPUSCULAR HGB CONC 33.3 g/dL (31-35); MEAN CORPUSCULAR VOLUME 86.5 fL (81-99); MONOCYTES # (AUTO) 0.7 (0.2-0.8); MONOCYTES % 10.2 % (4.4-11.3); NEUTROPHILS # (AUTO) 2.8 (2.1-6.9); NEUTROPHILS % 41.4 % (38.7-80.0); PLATELET COUNT 322 x10e3/uL (140-360); RED BLOOD COUNT 4.83 x10e6/uL (4.3-5.7); RED CELL DISTRIBUTION WIDTH 15.6 % (11.7-14.4)
[2018-03-21 09:16] LABS: INR 1.17; PARTIAL THROMBOPLASTIN TIME 29.7 seconds (23.8-35.5)
[2018-03-21 09:19] LABS: ALANINE AMINOTRANSFERASE 16 IU/L (0-55); ALBUMIN 3.7 g/dL (3.5-5.0); ALBUMIN/GLOBULIN RATIO 1.1 (0.8-2.0); ALKALINE PHOSPHATASE 68 IU/L (40-150); ANION GAP 11.8 mmol/L (8-16); BLOOD UREA NITROGEN 10 mg/dL (7-26); BUN/CREATININE RATIO 15 (6-25); CALCIUM 9.4 mg/dL (8.4-10.2); CARBON DIOXIDE 29 mmol/L (22-29); CHLORIDE 103 mmol/L (98-107); CREATINE KINASE 111 IU/L (30-200); CREATININE, SERUM 0.65 mg/dL (0.72-1.25); EST GLOMERULAR FILTRATION RATE > 60 ML/MIN (60-); GLUCOSE 94 mg/dL (74-118); POTASSIUM 3.8 mmol/L (3.5-5.1); SODIUM 140 mmol/L (136-145)
--- NOTE | 2018-03-21 09:55 | Diagnostic Imaging Report ---
EXAMINATION: CHEST SINGLE (PORTABLE) INDICATION: Shortness of breath. COMPARISON: CT abdomen and pelvis 01/17/2018. Chest x-ray 12/17/2017. FINDINGS: AP view TUBES and LINES: None. LUNGS: Lungs are moderately inflated. Diffuse hazy opacification again seen. PLEURA: No pleural effusion or pneumothorax. HEART AND MEDIASTINUM: Cardiac size is moderately enlarged. BONES AND SOFT TISSUES: No acute osseous lesion. Soft tissues are unremarkable. UPPER ABDOMEN: No free air under the diaphragm. IMPRESSION: Diffuse hazy opacification, likely edema. Superimposed infection cannot be excluded. Signed by: Dr. Ron Hightower M.D. on 03/21/2018 9:52 AM
[2018-03-21] MEDS ORDERED: SODIUM CHLORIDE FLUSH 10 ML SYR INJ PRN (11:00)
[2018-03-21] MEDS ORDERED: MORPHINE SULFATE 2 MG/ML SYR IV PRN (11:00)
[2018-03-21] MEDS ORDERED: NITROGLYCERIN 0.4 MG SUBL SL PRN (11:00)
[2018-03-21] MEDS ORDERED: ASPIRIN 81 MG CHEW TAB PO ONE (12:15)
[2018-03-21] MEDS: NITROGLYCERIN 2% OINT 1 GM PKT TOP SCH ×3 (12:26→23:20)
[2018-03-21] MEDS: FAMOTIDINE 20 MG TAB PO SCH ×2 (12:26→21:25)
[2018-03-21 13:14] VITALS: BP 133/89
[2018-03-21] MEDS ORDERED: SODIUM CHLORIDE 0.9% 1000ML 1,000 ML ONE (13:40)
[2018-03-21 14:02] LABS: CREATINE KINASE 110 IU/L (30-200)
[2018-03-21 14:15] VITALS: BP 133/89
[2018-03-21 15:24] VITALS: BP 115/80
[2018-03-21] MEDS ORDERED: ONDANSETRON HCL INJ 2 MG/ML VIAL IV PRN (17:00)
[2018-03-21] MEDS ORDERED: ACETAMINOPHEN 325 MG TAB PO PRN (17:00)
[2018-03-21] MEDS ORDERED: HYDRALAZINE HCL 20 MG/ML VIAL IV PRN (17:00)
[2018-03-21 18:54] LABS: CREATINE KINASE MB 1.3 ng/mL (0-5.0)
[2018-03-21 19:35] VITALS: BP 118/73
[2018-03-21] MEDS ORDERED: ATORVASTATIN 20 MG TAB PO SCH (21:00)
[2018-03-22] VITALS: BP 118/73
[2018-03-22 00:05] VITALS: BP 109/67
[2018-03-22 04:20] VITALS: BP 121/76
[2018-03-22] MEDS: NITROGLYCERIN 2% OINT 1 GM PKT TOP SCH (04:39)
[2018-03-22 07:29] VITALS: BP 121/76
[2018-03-22 08:00] VITALS: BP 110/69
[2018-03-22 08:06] LABS: BASOPHILS % 0.5 % (0.0-1.0); EOSINOPHILS # (AUTO) 0.1 (0.0-0.4); EOSINOPHILS % 1.5 % (0.0-6.0); HEMATOCRIT 44.8 % (38.2-49.6); HEMOGLOBIN 14.9 g/dL (14.0-18.0); LYMPHOCYTES # (AUTO) 2.9 (1.0-3.2); LYMPHOCYTES % 43.7 % (18.0-39.1); MEAN CORPUSCULAR HEMOGLOBIN 28.6 pg (28-32); MEAN CORPUSCULAR HGB CONC 33.3 g/dL (31-35); MONOCYTES # (AUTO) 0.5 (0.2-0.8); MONOCYTES % 8.2 % (4.4-11.3); NEUTROPHILS # (AUTO) 3.1 (2.1-6.9); NEUTROPHILS % 45.9 % (38.7-80.0); PLATELET COUNT 267 x10e3/uL (140-360); RED BLOOD COUNT 5.21 x10e6/uL (4.3-5.7); RED CELL DISTRIBUTION WIDTH 15.7 % (11.7-14.4)
[2018-03-22 08:26] LABS: ANION GAP 12.2 mmol/L (8-16); BLOOD UREA NITROGEN 12 mg/dL (7-26); BUN/CREATININE RATIO 17 (6-25); CALCIUM 9.6 mg/dL (8.4-10.2); CARBON DIOXIDE 29 mmol/L (22-29); CHLORIDE 101 mmol/L (98-107); CHOL/HDL RATIO 5.1 (3.9-4.7); CHOLESTEROL 187 MD/DL (0-199); CREATININE, SERUM 0.69 mg/dL (0.72-1.25); EST GLOMERULAR FILTRATION RATE > 60 ML/MIN (60-); GLUCOSE 83 mg/dL (74-118); HDL CHOLESTEROL 37 MG/DL (40-60); LDL CHOLESTEROL 137 MG/DL (60-130); MAGNESIUM 1.9 MG/DL (1.3-2.1); POTASSIUM 4.2 mmol/L (3.5-5.1); SODIUM 138 mmol/L (136-145); TRIGLYCERIDES 63 MG/DL (0-149)
[2018-03-22 08:48] LABS: FREE T4 (FREE THYROXINE) 0.89 ng/dL (0.9-1.8); THYROID STIMULATING HORMONE 2.308 uIU/mL (0.350-4.940)
[2018-03-22] MEDS ORDERED: LISINOPRIL 10 MG TAB PO SCH (09:00)
[2018-03-22] MEDS ORDERED: FUROSEMIDE 40 MG TAB PO SCH (09:00)
[2018-03-22] MEDS ORDERED: ASPIRIN 81 MG CHEW TAB PO SCH (09:00)
[2018-03-22] MEDS ORDERED: POTASSIUM CHLORIDE 10 MEQ TABCR PO SCH (09:00)
[2018-03-22] MEDS ORDERED: ASPIRIN 81 MG ENTERIC COATED PO SCH (09:00)
--- NOTE | 2018-03-22 09:28 | Consultation ---
DATE OF CONSULTATION: March 21, 2018 CARDIOLOGY CONSULTATION REASON FOR CONSULTATION: Chest pain. 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 According to him, yesterday he started having tightness on the right side of his chest that moved to the left side of the chest on a scale of 8/10 with no radiation. He stated that the pain got worse and he decided to come in for evaluation. He has a history of multiple hospital admissions in the past. He had a recent cardiac stress test 7 months ago that was normal. He denies any palpitation, any shortness of breath, any diaphoresis, or headache. Troponin times 3 was negative. EKG showed normal sinus rhythm with no S/T abnormalities. PAST MEDICAL HISTORY: CHF, hypertension, paroxysmal AFib, hyperlipidemia, and Leong syndrome. PAST SURGICAL HISTORY: Right knee surgery and open heart surgery. FAMILY HISTORY: Hypertension. SOCIAL HISTORY: No smoking. No drinking. He lives at home with family members. MEDICATIONS: See med list. ALLERGIES: HE IS NOT ALLERGIC TO ANY MEDICATIONS. REVIEW OF SYSTEMS: Negative except those mentioned above. PHYSICAL EXAMINATION VITAL SIGNS: Temperature 97, heart rate 90, blood pressure 121/76, respirations 18, oxygen saturation 95% on room air. GENERAL: He is awake, alert and oriented times 3. HEENT: Mucous membrane moist. NECK: Supple. LUNGS: Bilateral clear to auscultation. CARDIOVASCULAR: S1 and S2 present. ABDOMEN: Soft. NEUROLOGICAL: Intact. EXTREMITIES: With no edema. LABS: Sodium 140, potassium 3.8, chloride 103, CO2 29, BUN 10, creatinine 0.65, glucose 94. White blood cells 6.76, hemoglobin 13.9, hematocrit 41.8, and platelets 322,000. PT 14, PTT 29.7 and INR 1.17. IMPRESSION 1. Chest pain. 2. Hypertension. 3. History of paroxysmal atrial fibrillation. 4. Leogn syndrome. 5. Hyperlipidemia. 6. History of coronary artery disease. ASSESSMENT AND PLAN: He had a recent echocardiogram in December 2017 with EF of 45% to 50%. Troponin times 3 was negative. He had a recent cardiac stress test 7 months ago that was negative for ischemia. Will go ahead and continue statin, JENNIE and aspirin. He had a history of paroxysmal AFib and had refused anticoagulation. Further cardiac workup pending clinical course. Thank you for this consultation. DICTATED BY AMY ZELAYA NP Job#: [id number] [place]
--- NOTE | 2018-03-22 10:36 | Discharge Summary ---
ADMISSION DIAGNOSES 1. Chest pain. 2. Hypertension. 3. Congestive heart failure. 4. Paroxysmal atrial fibrillation. 5. Hyperlipidemia. DISCHARGE DIAGNOSES 1. Chest pain. 2. Hypertension. 3. Congestive heart failure. 4. Paroxysmal atrial fibrillation. 5. Hyperlipidemia. HISTORY: Patient has a history of hypertension, CHF, bronchitis, Leong syndrome, PAF, hyperlipidemia. Surgical history of right leg and right foot surgeries. HOSPITAL COURSE: A 32-year-old male complains of chest pressure that began yesterday and lasted a few minutes. He said the pain did not radiate, but had associated shortness of breath and headache. He denied fever and dizziness. He says he is having trouble at home, and requested to speak to a rehabilitation caseworker. Upon admission, EKG was normal sinus. Echo prelim showed 45% to 50% EF. Cardiology was consulted. Troponins negative times 3. Home meds resumed for hypertension, CHF, PAF, and hyperlipidemia. 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 Patient refusing anything more than aspirin for blood thinner. After speaking with case management, it appears that the patient was having trouble at home due to an unpaid cable bill. He was requesting that we help him pay the bill. On the day of discharge, sodium 138, potassium 4.2, creatinine 0.69, GFR of over 60. WBC 6.62, hemoglobin 14.9, hematocrit 44.8. BNP of less than 10. TSH 2.3, free T4 0.89. Patient ready to discharge home with family. Chest x-ray was negative. He will follow up with primary care in about 2 weeks. Patient understands the discharge plan and agrees. DICTATED BY PARTH ALICIA NP OSIRIS PRICE MD Job#: [id number] [place]
== END 2018-03-22 10:49 | disposition home or self-care (01) ==
LOC: ER 07:55 → ERHOLD 11:03 → MED/SURG2 11:41
PROVIDERS: ADMIT Internal Medicine; ATTEND Internal Medicine
DX: R07.9 Chest pain, unspecified (principal); I48.0 Paroxysmal atrial fibrillation; Q74.8 Other specified congenital malformations of limb(s); E78.5 Hyperlipidemia, unspecified; I25.10 Atherosclerotic heart disease of native coronary artery without angina pectoris; I11.0 Hypertensive heart disease with heart failure; I50.9 Heart failure, unspecified
CPT/HCPCS: 36415 ×2; 71045; 80048; 80053; 80061; 82550; 82553; 83735; 83880; 84439; 84443; 84484; 85025 ×2; 85379; 85610; 85730; 93005; 93306; 99284; G0378 ×2; J7030

== ENCOUNTER 2018-11-10 01:11 | Emergency (ER) | payer OTHER ==
[~2018-11-10] VITALS: Ht 144.8 cm; Wt 71.2 kg
--- OUTSIDE RECORDS SUMMARY | 2018-11-10 01:13 | XMS REPORT | Clinical Summary ---
Author Author AJITH [facility] Address Unknown Phone Unavailable Care Team Providers Care Retail Property Manager Name Role Phone Sharpless PCP Allergies No Known Allergies Medications End Date Status Medication Sig Dispensed Refills Start Date Active famotidine (PEPCID) 20 MG Take 20 mg by 0 tablet mouth 2 (two) times daily. Active nitroglycerin (NITROSTAT) Place 0.5 0 2 % ointment inches onto the skin 3 (three) times daily as needed . Active atorvastatin (LIPITOR) 20 Take 20 mg by 0 MG tablet mouth daily. Active potassium chloride SA Take 10 mEq 0 (K-DUR,KLOR-CON) 10 MEQ by mouth 2 tablet (two) times daily. Active aspirin 325 MG tablet Take 325 mg 0 by mouth daily. Active ibuprofen (ADVIL,MOTRIN) Take 400 mg 0 400 MG tablet by mouth every 6 (six) hours as needed for Pain. Active furosemide (LASIX) 40 MG Take 40 mg by 0 tablet mouth 2 (two) times daily. Active lisinopril Take 10 mg by 0 (PRINIVIL,ZESTRIL) 10 MG mouth daily. tablet Active acetaminophen-codeine Take 1 tablet 0 (TYLENOL #3) 300-30 mg by mouth per tablet every 4 (four) hours as needed for Pain. 11/17/2017 Discontinued amoxicillin (AMOXIL) 250 Take 250 mg 0 MG capsule by mouth 3 (three) times daily. Active Problems Problem Noted Date Food impaction of esophagus 11/17/2017 Food impaction of esophagus, initial encounter 11/17/2017 Encounters Care Team Description Date Type Specialty Shavon Hirsch MD 11/17/2017 Anesthesia Gastroenterology Event Luis Coreas MD UPPER ENDOSCOPY 11/17/2017 Surgery Gastroenterology Ryan Vallecillo MD Nalam, Roopa Lata, MD Food impaction of esophagus, initial encounter 11/16/2017 [facility] General Internal Medicine - Encounter 11/17/2017 after 11/09/2017 Social History Date Tobacco Use Types Packs/Day Years Used Never Smoker Smokeless Tobacco: Never Used Sex Assigned at Date Recorded Not on file Industry Job Start Date Occupation Not on file Not on file Not on file Travel End Travel History Travel Start No recent travel history available. Last Filed Vital Signs Time Taken Vital Sign Reading 11/17/2017 12:39 PM PERMASTONE APPLICATOR Blood Pressure 115/59 11/17/2017 12:39 PM PERMASTONE APPLICATOR Pulse 114 11/17/2017 12:39 PM PERMASTONE APPLICATOR Temperature 36.4 C (97.6 F) 11/17/2017 12:39 PM PERMASTONE APPLICATOR Respiratory Rate 18 11/17/2017 12:39 PM PERMASTONE APPLICATOR Oxygen Saturation 96% - Inhaled Oxygen - Concentration - Weight - - Height - - Body Mass Index - Plan of Treatment Not on file Procedures Comments Procedure Name Priority Date/Time Associated Diagnosis REPORT OF PROCEDURE - 11/18/2017 ENDOSCOPY SCAN 12:41 PM PERMASTONE APPLICATOR RHYTHM STRIP - SCAN 11/18/2017 12:40 PM PERMASTONE APPLICATOR XR ESOPH SWALLOW FUNCTION STAT 11/17/2017 W/CINE VIDEO 9:30 AM PERMASTONE APPLICATOR REPORT OF PROCEDURE - 11/17/2017 ENDOSCOPY URL 2:04 AM PERMASTONE APPLICATOR UPPER ENDOSCOPY 11/17/2017 food impaction 12:15 AM PERMASTONE APPLICATOR after 11/09/2017 Results * EKG-SCANNED (11/18/2017 12:41 PM PERMASTONE APPLICATOR) Narrative Performed At * RHYTHM STRIP - SCAN (11/18/2017 12:40 PM PERMASTONE APPLICATOR) Narrative Performed At * FL esoph swallow funct with cine video (11/17/2017 9:30 AM PERMASTONE APPLICATOR) Narrative Performed At FINAL REPORT [facility] Esophagram History:perforation post EGD (please do Gastrografin [...] MD Report Verified Date/Time:11/17/2017 09:46:44 Reading Location: [facility] [id number] Ortho Consult Reading Room Procedure Note Interface, [...] Report Verified Date/Time: 11/17/2017 09:46:44 Reading Location: [facility] [id number] Ortho Consult Reading Room Performing Organization Address City/State/Zipcode Phone Number GE RIS * REPORT OF PROCEDURE - ENDOSCOPY URL (11/17/2017 2:04 AM PERMASTONE APPLICATOR) Narrative Performed At after 11/09/2017 Insurance Payer Benefit Subscriber ID Type Phone Address Plan / Group MEDICAID - MEDICAID MGD [facility] xxxxxxxxx Medicaid CARE COMM STAR Contracted PLAN Advance Directives For more information, please contact: [address] [address] Date Inactivated Comments Code Status Date Activated 11/17/2017 4:14 PM Full Code 11/17/2017 12:32 AM This code status was determined by: Patient
--- NOTE | 2018-11-10 02:45 | NUR ---
[facility] CALLED FOR WC TRANSPORT
--- NOTE | 2018-11-10 03:05 | NUR ---
PRINTERS DOWN AT FACILITY; PATIENT GIVEN DOWNTIME DC INSTRUCTIONS
== END 2018-11-10 03:25 | disposition home or self-care (01) ==
LOC: ER 01:11
DX: H66.002 Acute suppurative otitis media without spontaneous rupture of ear drum, left ear (principal)
CPT/HCPCS: 99282

== ENCOUNTER 2019-05-16 14:34 | Emergency (ER) | payer OTHER ==
[~2019-05-16] VITALS: Ht 144.8 cm; Wt 71.2 kg
--- OUTSIDE RECORDS SUMMARY | 2019-05-16 14:36 | XMS REPORT | Summary of Care ---
Author Author [facility] - Health Organization [facility] - Health Address Unknown Phone Unavailable Care Team Providers Care Passenger Service Agent Name Role Phone Augustine Mota PCP Reason for Visit * Reason Comments Follow-up right ear Encounter Details Care Team Description Date Type Department Diana Ferguson [id number] [place], [place] [address] Acute otitis externa of right ear, unspecified type (Primary Dx); Impacted cerumen of left ear; Stenosis of both external auditory canals; Conductive hearing loss of both ears; Otalgia, bilateral 05/05/2019 Office Visit [facility] Ear, Nose and Throat[address] [address] Allergies No Known Allergiesdocumented as of this encounter (statuses as of 05/07/2019) Medications End Date Status Medication Sig Dispensed Refills Start Date Active lisinopril Take 20 mg by 0 (PRINIVIL,ZESTRIL) 20 mg mouth daily. tablet Active acetaminophen-codeine Take 1 Tab by 30 Tab 0 (TYLENOL #3) 300-30 mg mouth every 4 5 tablet (four) hours as needed for Pain (scale 4-6) or Pain (scale 7-10). Active ibuprofen (MOTRIN) 400 mg Take 1 Tab by 30 Tab 1 tablet mouth every 6 5 (six) hours as needed for Pain (scale 1-3) with oral narcotics, Pain unrelieved by Tylenol or Temp > 38.5 C. Active triamcinolone acetonide Apply to 80 g 2 0.1 % creamIndications: area(s) 2 9 LSC (lichen simplex (two) times chronicus) daily. Active ciprofloxacin-dexamethaso Place 4 Drops 7.5 mL 4 ne 0.3-0.1 % otic in both ears 9 dropsIndications: 2 (two) times Otorrhagia of right ear daily. 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 documented as of this encounter Last Filed Vital Signs Reading Time Taken Comments Vital Sign - - Blood Pressure - - Pulse 35.9 C (96.7 F) 05/05/2019 10:35 AM CDT Temperature - - Respiratory Rate - - Oxygen Saturation - - Inhaled Oxygen Concentration 84.6 kg (186 lb 9.6 oz) 05/05/2019 10:35 AM CDT Weight 144.8 cm (4' 9") 05/05/2019 10:35 AM CDT Height 40.38 05/05/2019 10:35 AM CDT Body Mass Index documented in this encounter Progress Notes * Diana Ferguson - 05/05/2019 10:30 AM CDT Visit Type: Clinic Note / History and Physical Chief Complaint: right ear infection, hearing loss GEO Bates is a 33 year old male who is referred here today for right ear in fection and hearing loss. 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 Only the lateral region of EAC is open, whereas medial EAC and TM is not visible. At last visit, right ear was wet with slight purulent otorrhea. Left ear with slight c erumen, but patient is not very tolerant of in-office ear procedures. Patient kaplan s short stature, and is not a good historian. Patient uses ear phones to listen to music on ipad, and does not seem to have mu ch problems with hearing during clinic visits, even with the significant bilater al EAC stenosis. Histories Past Medical History: Diagnosis Date Difficult intubation 10/10/2014 see Anesthesia note from 10/10/14 by Ruma for details. difficult mask ventila tion and difficult fiberoptic attempts, procedure aborted due to inability to se cure airway. HTN (hypertension) Leong syndrome Past Surgical History: Procedure Laterality Date HAMSTRING RELEASE Left 10/10/2014 Surgeon: Russell Molina MD; [facility] KNEE ARTHROSCOPY Left 10/10/2014 Surgeon: Russell Molina MD; [facility] LEG/ANKLE SURGERY PROC UNLISTED TIBIALIS TENDON TRANSFER (SHX) Left 10/10/2014 Surgeon: Russell Molina MD; [facility] Family History Problem Relation Age of Onset Hypertension Other Social History Socioeconomic History Marital status: Single Spouse name: Not on file Number of children: Not on file Years of education: Not on file Highest education level: Not on file Occupational History Not on file Social Needs Financial resource strain: Not on file Food insecurity: Worry: Not on file Inability: Not on file Transportation needs: Medical: Not on file Non-medical: Not on file Tobacco Use Smoking status: Never Smoker Smokeless tobacco: Never Used Substance and Sexual Activity Alcohol use: No Drug use: No Sexual activity: Not on file Lifestyle Physical activity: Days per week: Not on file Minutes per session: Not on file Stress: Not on file Relationships Social connections: Talks on phone: Not on file Gets together: Not on file Attends roman catholic service: Not on file Active member of club or organization: Not on file Attends meetings of clubs or organizations: Not on file Relationship status: Not on file Intimate partner violence: Fear of current or ex partner: Not on file Emotionally abused: Not on file Physically abused: Not on file Forced sexual activity: Not on file Other Topics Concern Not on file Social History Narrative Not on file Allergies No Known Allergies Medications Current Outpatient Medications Medication Sig Dispense Refill ciprofloxacin-dexamethasone 0.3-0.1 % otic drops Place 4 Drops in both ears 2 (two) times daily. 7.5 mL 4 triamcinolone acetonide 0.1 % cream Apply to area(s) 2 (two) times daily. 8 0 g 2 acetaminophen-codeine (TYLENOL #3) 300-30 mg tablet Take 1 Tab by mouth ever y 4 (four) hours as needed for Pain (scale 4-6) or Pain (scale 7-10). 30 Tab 0 ibuprofen (MOTRIN) 400 mg tablet Take 1 Tab by mouth every 6 (six) hours as needed for Pain (scale 1-3) with oral narcotics, Pain unrelieved by Tylenol or T emp > 38.5 C. 30 Tab 1 lisinopril (PRINIVIL,ZESTRIL) 20 mg tablet Take 20 mg by mouth daily. No current facility-administered medications for this visit. Review of Systems Reviewed previous ROS from history and physical dated April 2019 and there are no changes. Physical Exam Temp 35.9 C (96.7 F) (Tympanic) | Ht 4' 9" (1.448 m) | Wt 186 lb 9.6 oz (8 4.6 kg) | BMI 40.38 kg/m Body mass index is 40.38 kg/m. GENERAL: alert, does not appear acutely ill, cooperative EYES: WNL EARS: see procedure note HEAD/NECK: WNL RESPIRATORY SYSTEM: WNL NEUROLOGICAL/PSYCHIATRIC: Cranial Nerves II - XII intact Laboratory No new labs Radiology No new Radiology Procedure Note Binocular microscopic examination of bilateral ears: Slight debris was cleaned i n the external auditory canal using suction. Bilateral EAC stenosis, TM not visi ble bilaterally. Right ear: purulent otorrhea cleaned. Left ear: cerumen in lateral EAC, partially removed. EAC dry. Assessment/Plan ICD-10-CM ICD-9-CM 1. Acute otitis externa of right ear, unspecified type H60.501 380.10 2. Impacted cerumen of left ear H61.22 380.4 3. Stenosis of both external auditory canals H61.303 380.50 4. Conductive hearing loss of both ears H90.0 389.06 5. Otalgia, bilateral H92.03 388.70 Plan: - continue with ciprodex otic drops in right ear - F/U in 2 weeks - once infection resolved, do audiogram Surgical Intervention Not applicable. This visit did not involve counseling and coordination that comprised more than 50% of the visit time. * Eliza Hand MA - 05/05/2019 10:30 AM CDT Ren Bates is a 33 year old male patient here for a follow up on right ear. documented in this encounter Plan of Treatment Care Team Description Date Type Specialty Diana Ferguson [id number] [place], [place] [address] 05/19/2019 Office Visit Otolaryngology Ovidio Reza [address] [place] [address] [phone] 05/31/2019 Office Visit Dermatology Health Maintenance Due Date Last Done Comments VARICELLA VACCINES (1 of 12/21/1999 2 - 13+ 2-dose series) DTaP,Tdap,and Td Vaccines 2005 (1 - Tdap) INFLUENZA VACCINE 06/06/2019 PNEUMOCOCCAL 0-64 YEARS Aged Out No longer eligible based COMBINED SERIES on patient's age to complete this topic documented as of this encounter Results Not on filedocumented in this encounter Visit Diagnoses Diagnosis Acute otitis externa of right ear, unspecified type - Primary Impacted cerumen of left ear Impacted cerumen Stenosis of both external auditory canals Conductive hearing loss of both ears Conductive hearing loss, bilateral Otalgia, bilateral documented in this encounter Insurance Type Payer Benefit Subscriber ID Effective Phone Address Plan / Dates Group Medicaid [employer] COMM [employer] [place] xxxxxxxxx 2017-P PLAN - MANAGED MEDICAID STAR PLUS resent documented as of this encounter
--- OUTSIDE RECORDS SUMMARY | 2019-05-16 14:36 | XMS REPORT | Clinical Summary ---
Author Author AJITH [facility] Address Unknown Phone Unavailable Care Team Providers Care Power Transformer Repair Supervisor Name Role Phone Sharpbrenda PCP Allergies No Known Allergies Medications End [...] 4 (four) hours as needed for Pain. Active Problems Problem Noted Date Food impaction of esophagus 11/17/2017 Food impaction of esophagus, initial encounter 11/17/2017 Social History Date Tobacco Use Types Packs/Day Years Used Never Smoker Smokeless Tobacco: Never Used Sex Assigned at Date Recorded Not on file Industry Job Start Date Occupation Not on file Not on file Not on file Travel End Travel History Travel Start No recent travel history available. Last Filed Vital Signs Not on file Plan of Treatment Not on file Results Not on fileafter 05/15/2018 Insurance Payer Benefit Subscriber ID Type Phone Address Plan / Group MEDICAID - MEDICAID MGD [facility] xxxxxxxxx Medicaid CARE COMM STAR Contracted PLAN Advance Directives For more information, please contact: [facility] [address] [place] [address] Date Inactivated Comments Code Status Date Activated 11/17/2017 4:14 PM Full Code 11/17/2017 12:32 AM This code status was determined by: Patient
--- OUTSIDE RECORDS SUMMARY | 2019-05-16 14:36 | XMS REPORT | Summary of Care ---
Author Author [facility] - Health Organization [facility] - Health Address Unknown Phone Unavailable Care Team Providers Care Body Component Engineer Name Role Phone Augustine Mota PCP Reason for Visit * Reason Comments Follow-up right ear Encounter Details Care Team Description Date Type Department Diana Ferguson [id number] [place], [place] [address] Acute otitis externa of right ear, unspecified type (Primary Dx); Impacted cerumen of left ear; Stenosis of both external auditory canals; Conductive hearing loss of both ears; Otalgia, bilateral 05/05/[address] [facility] Ear, Nose and Throat[address] [address] Allergies No Known Allergiesdocumented as [...] file Gets together: Not on file Attends adventism service: Not on file Active member of [...] Type Specialty Diana Ferguson [id number] [place], [place] [address] 05/19/2019 Office Visit Otolaryngology Ovidio Reza [address] [place] [address] [phone] 05/31/2019 Office Visit Dermatology Health Maintenance Due [...]
--- OUTSIDE RECORDS SUMMARY | 2019-05-16 14:36 | XMS REPORT | Summary of Care ---
Author Author [facility] - Health Organization [facility] - Health Address Unknown Phone Unavailable Care Team Providers Care Golf Technician Name Role Phone Nakul Richy Leone PCP Reason for Visit * Reason Comments Follow-up Encounter Details Care Team Description Date Type Department Ovidio Reza [address] [place], [place] [address] LSC (lichen simplex chronicus) (Primary Dx); Hypertrophic scar of skin 05/03/2019 [facility] [address] [facility] [address] [place] [address] Allergies No Known Allergiesdocumented as of this encounter (statuses as of 05/13/2019) Medications End Date Status Medication Sig Dispensed [...] as of this encounter (statuses as of 05/13/2019) Active Problems Problem Noted Date Left ankle [...] as of this encounter (statuses as of 05/13/2019) Social History Date Tobacco Use Types Packs/Day Years Used Never Smoker Smokeless Tobacco: Never Used Drinks/Week oz/Week Comments Alcohol Use No Sex Assigned at Date Recorded Not on file Industry Job Start Date Occupation Not on file Not on file Not on file Travel End Travel History Travel Start No recent travel history available. 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 Patient has been getting s erial treatments with ILK and reports improvement s/p injections. Reports itchin g to lesions. He would like more injections today. - He was started on treatment for Lichen simplex chronicus at the last visit. H e was given triamcinolone cream for this and advised against rubbing or scratchi ng. He reports improvement but not resolution. SH: Lives in [place] Histories Ren has a past medical history of Difficult intubation (10/10/2014), HTN (hy pertension), and Leong syndrome. He has a past surgical history that includes leg/ankle surgery proc unlisted; h amstring release (Left, 10/10/2014); tibialis tendon transfer (shx) (Left, 5); and knee arthroscopy (Left, 10/10/2014). His family history includes Hypertension in his other. He reports that he has never smoked. He has never used smokeless tobacco. He re ports that he does not drink alcohol or use drugs. Allergies Ren has No Known Allergies. Medications Ren has a current medication list which includes the following prescription (s): ciprofloxacin-dexamethasone, triamcinolone acetonide, acetaminophen-codeine , ibuprofen, and lisinopril. Review of Systems Constitution: pain (-) Skin: Rash (-); Growth (+); Itching (+); Bleeding (-) Physical Exam General : No acute distress, awake, well developed, well nourished Psychiatric: Normal affect, mood, judgement, and thought content Neuro: Alert, oriented to person, place, situation There were no vitals taken for this visit. FACE: Negative NOSE: Negative EARS: Negative NECK: Negative BACK: Positive RIGHT ARM: See image LEFT ARM: Positive (-)=Negative,(+)=Positive Actinic Keratosis (A): erythematous scaling papules Noirega Hemaniogioma (CH): smooth red and purple papules Dermatitis Erythema (DE): mild to moderate erythema and scaling Dermatitis Lichenified (DL): lichenification and thickening Dermatitis Weeping (DW): weeping and excoriation Inflamed Seborrheic Keratosis (ISK): inflamed warty brown papules and plaques Millium (ML): Small white cystic papule Molluscum Contagiosum (MC): umbilicated papule Nevus Macular (NM): well circumsc ribed evenly pigmented macule Nevus Papular (PARTY PLAN SALES CONSULTANT): well circumscribed evenly pigmented papule Psoriasis Circumscribed (PC): well circumscribed erythema and scaling Psoriasis Diffuse (PD): diffuse patches of erythema and scaling Seborrheic Keratosis (SK): verrucous brown papules and plaques Scar (SR): cicatricial change Verruca Vulgarus (W): warty hyperkeratotic papule Assessment/Plan 1. Hypertrophic scars - bilateral posterior shoulders/upper back - Reviewed diagnosis, etiology, and treatment options - Risks and side effects of procedure discussed (including pain, atrophy at inje ction site). Verbal consent obtained. Time out performed - Area prepped with alcohol. 6 lesion(s) injected with Kenalog 10 mg/ml. Total o f 0.7 ml injected 2. Syringocystadenoma papilliferum - scalp - Not discussed today 3. Lichen Simplex Chronicus, elbows, right wrist/hand areas of hyperpigmentation with some residual lichenivication. - Discussed etiology, prognosis and treatment options with patient - May use triamcinolone 0.1% cream BID when needed - Stressed strict avoidance of rubbing/scratching RTC in 6 weeks * Brook Garcia MA - 05/03/2019 2:20 PM CDT Patient is being seen in clinic for follow up Patient is alert,ambulatory,and oriented. Medication and allergies reviewed with patient. Vital sign deferred by doctor. No pain noted at this time. No falls in the past 12 months. Preferred language is Martiniquais. Brook Garcia MA 05/03/2019 2:39 PM documented in this encounter Plan of Treatment Care Team Description Date Type Specialty Danieledixiesun Diana [facility] [id number] [place] [address] [phone] 05/19/2019 Office Visit Otolaryngology Ovidio Reza [address] [place] [address] [phone] 05/31/2019 Office Visit Dermatology Health Maintenance Due [...] filedocumented in this encounter Visit Diagnoses Diagnosis LSC (lichen simplex chronicus) - Primary Lichenification and lichen simplex chronicus Hypertrophic scar of skin Keloid scar documented in this encounter Insurance Type Payer Benefit Subscriber ID Effective Phone Address Plan / Dates Group Medicaid [employer] COMM [employer] [place] xxxxxxxxx 2017-P PLAN - MANAGED MEDICAID STAR PLUS resent documented as of this encounter
--- OUTSIDE RECORDS SUMMARY | 2019-05-16 14:36 | XMS REPORT | Summary of Care ---
Author Author [facility] - Health Organization [facility] - Health Address Unknown Phone Unavailable Care Team Providers Care High School Art Teacher Name Role Phone Nakul Richy Leone PCP Reason for Visit * Reason Comments Follow-up Encounter Details Care Team Description Date Type Department Ovidio Reza [address] [place], [place] [address] LSC (lichen simplex chronicus) (Primary Dx); Hypertrophic scar of skin 05/03/2019 [facility] [address] [facility] [address] [place] [address] Allergies No Known Allergiesdocumented as [...] improvement but not resolution. SH: Lives in [place] Histories Ren has a past medical history [...] (-)=Negative,(+)=Positive Actinic Keratosis (A): erythematous scaling papules Noriega Hemaniogioma (CH): smooth red and purple papules Dermatitis Erythema (DE): mild to moderate erythema and scaling Dermatitis Lichenified (DL): lichenification and thickening Dermatitis Weeping (DW): weeping and excoriation Inflamed Seborrheic Keratosis (ISK): inflamed warty brown papules and plaques Millium (ML): Small white cystic papule Molluscum Contagiosum (MC): umbilicated papule Nevus Macular (NM): well circumsc ribed evenly pigmented macule Nevus Papular (HOUSEKEEPER/CUSTODIAN/LAUNDRY WORKER): well circumscribed evenly pigmented papule Psoriasis Circumscribed [...] the past 12 months. Preferred language is [place] Citizen. Brook Garcia MA 05/03/2019 2:39 PM documented in this encounter Plan of Treatment Care Team Description Date Type Specialty Danieledixiesun Diana [facility] [id number] [place] [address] [phone] 05/19/2019 Office Visit Otolaryngology Ovidio Reza [address] [place] [address] [phone] 05/31/2019 Office Visit Dermatology Health Maintenance Due [...]
== END 2019-05-16 15:52 | disposition home or self-care (01) ==
LOC: ER 14:34
DX: H66.41 Suppurative otitis media, unspecified, right ear (principal)
CPT/HCPCS: 99283

== ENCOUNTER 2020-03-21 00:06 | Emergency (ER) | payer OTHER ==
[~2020-03-21] VITALS: Ht 144.8 cm; Wt 71.2 kg
--- NOTE | 2020-03-21 01:36 | Emergency Department Note ---
History of Present Illnes History of Present Illness Chief Complaint: Chest Pain History of Present Illness This is a 34 year old male PRESENTS TO THE ER C/O "FUNNY FEELING IN CHEST" PT STATES "I FEEL LIKE I HAVE A BUBBLE OR WORM IN MY CHEST" ONSET YESTERDAY; PT ALSO REPORTS WAX BUILDUP IN LT EAR X3 DAYS. Historian: Patient Arrival Mode: Car Onset (how long ago): day(s) (1) Location: CHEST Quality: PALPITATIONS Radiation: Reports non-radiation Severity: mild Onset quality: gradual Duration (how long): day(s) (1) Timing of current episode: constant Progression: unchanged Chronicity: new Context: Denies recent illness, Denies recent surgery Relieving factors: none Exacerbating factors: none Associated symptoms: Reports denies other symptoms Past Medical/Family History Physician Review I have reviewed the patient's past medical and family history. Any updates have been documented here. Past Medical History Recent Fever: No Clinical Suspicion of Infectio: No New/Unexplained Change in Ment: No Past Medical History: Hypertension, CHF, A-Fib, CAD, GERD, Hyperlipedemia Other Medical History: PERERA SYNDROME PNEUMONIA TACHYCARDIA Other Surgery: RT KNEE SX, HEART SURGERY AT WITH BALLOON PLACEMENT Social History Smoking Cessation: Never Smoker Alcohol Use: None Any Illegal Drug Use: No Other Last Tetanus: Unknown Review of Systems Review of Systems Constitutional: Reports no symptoms EENTM: Reports no symptoms Cardiovascular: Reports as per HPI Respiratory: Reports no symptoms Gastrointestinal: Reports no symptoms Genitourinary: Reports no symptoms Musculoskeletal: Reports no symptoms Integumentary: Reports no symptoms Neurological: Reports no symptoms Psychological: Reports no symptoms Endocrine: Reports no symptoms Hematological/Lymphatic: Reports no symptoms Physical Exam Related Data Allergies: Coded Allergies: No Known Allergies (Unverified , 03/21/18) Triage Vital Signs Vital Signs Date Time Temp Pulse Resp B/P (MAP) Pulse Ox O2 Delivery O2 Flow Rate FiO2 03/21/20 00:14 97.8 113 20 142/92 93 Vital signs reviewed: Yes Physical Exam CONSTITUTIONAL Constitutional: Present well-developed, Present well-nourished HENT HENT: Present normocephalic, Present atraumatic, Present oropharynx clear/moist, Present nose normal HENT L/R: Present left canal normal (SMALL AMOUT OF WAX IN EAR, EAR DRUM VISIBLE), Present right canal normal, Present left ext ear normal, Present right ext ear normal EYES Eyes: Reports PERRL, Reports conjunctivae normal NECK Neck: Present ROM normal PULMONARY Pulmonary: Present effort normal, Present rales (IN ALL LUNG DOW ) CARDIOVASCULAR Cardiovascular: Present regular rhythm, Present heart sounds normal, Present capillary refill normal, Present tachycardia (105) GASTROINTESTINAL Abdominal: Present soft, Present nontender, Present bowel sounds normal GENITOURINARY Genitourinary: Present exam deferred SKIN Skin: Present warm, Present dry MUSCULOSKELETAL Musculoskeletal: Present ROM normal NEUROLOGICAL Neurological: Present alert, Present oriented x 3, Present no gross motor or sensory deficits PSYCHOLOGICAL Psychological: Present mood/affect normal, Present judgement normal Results Laboratory Laboratory Laboratory Tests Test 03/21/20 01:25 White Blood Count 6.52 x10e3/uL (4.8-10.8) Red Blood Count 6.03 x10e6/uL (4.3-5.7) Hemoglobin 16.0 g/dL (14.0-18.0) Hematocrit 50.0 % (38.2-49.6) Mean Corpuscular Volume 82.9 fL (81-99) Mean Corpuscular Hemoglobin 26.5 pg (28-32) Mean Corpuscular Hemoglobin Concent 32.0 g/dL (31-35) Red Cell Distribution Width 16.9 % (11.7-14.4) Platelet Count 264 x10e3/uL (140-360) Neutrophils (%) (Auto) 57.0 % (38.7-80.0) Lymphocytes (%) (Auto) 32.4 % (18.0-39.1) Monocytes (%) (Auto) 8.6 % (4.4-11.3) Eosinophils (%) (Auto) 1.2 % (0.0-6.0) Basophils (%) (Auto) 0.6 % (0.0-1.0) Neutrophils # (Auto) 3.7 (2.1-6.9) Lymphocytes # (Auto) 2.1 (1.0-3.2) Monocytes # (Auto) 0.6 (0.2-0.8) Eosinophils # (Auto) 0.1 (0.0-0.4) Basophils # (Auto) 0.0 (0.0-0.1) Absolute Immature Granulocyte (auto 0.01 x10e3/uL (0-0.1) D-Dimer Quantitative (PE/DVT) 0.44 ug/mLFEU (0.00-0.45) Sodium Level 138 mmol/L (136-145) Potassium Level 4.6 mmol/L (3.5-5.1) Chloride Level 98 mmol/L (98-107) Carbon Dioxide Level 28 mmol/L (22-29) Anion Gap 16.6 mmol/L (8-16) Blood Urea Nitrogen 13 mg/dL (7-26) Creatinine 0.79 mg/dL (0.72-1.25) Estimat Glomerular Filtration Rate > 60 ML/MIN (60-) BUN/Creatinine Ratio 16 (6-25) Glucose Level 103 mg/dL (74-118) Calcium Level 9.5 mg/dL (8.4-10.2) Total Bilirubin 0.3 mg/dL (0.2-1.2) Aspartate Amino Transf (AST/SGOT) 41 IU/L (5-34) Alanine Aminotransferase (ALT/SGPT) 32 IU/L (0-55) Alkaline Phosphatase 76 IU/L (40-150) Creatine Kinase 249 IU/L (30-200) Creatine Kinase MB 3.30 ng/mL (0-5.0) Troponin I < 0.001 ng/mL (0-0.300) Total Protein 8.7 g/dL (6.5-8.1) Albumin 3.9 g/dL (3.5-5.0) Globulin 4.8 g/dL (2.3-3.5) Albumin/Globulin Ratio 0.8 (0.8-2.0) Lab results reviewed: Yes Imaging Imaging results reviewed: Yes Impressions CXR Lung field evaluation is limited due to suboptimal technique and patient body habitus. Subtle perihilar/lower lung haziness can be due to airspace disease or extrathoracic soft tissue attenuation. Procedures 12 Lead ECG Interpretation ECG Interpretation : ECG: ECG 1 Salt Grinder: Interpreted by ED physician Date: Mar 21, 2020 Time: 00:30 Rhythm: sinus tachycardia Rate: tachycardia BPM: 105 QRS axis: normal Conduction: intraventricular conduction delay ST segments normal: Yes T waves normal: Yes Other findings: no other findings Clinical Impression: abnormal ECG Assessment & Plan Medical Decision Making MDM Patient with palpitations since yesterday. CBC, CMP, cardiac enzymes, d-dimer, chest x-ray, EKG ordered to eval for arrhythmia, intrathoracic abnormality, pulmonary embolus, myocardial infarction, electrolyte abnormality. Assessment & Plan Final Impression: (1) Palpitations Depart Disposition: HOME, SELF-CARE Last Vital Signs Date Time Temp Pulse Resp B/P (MAP) Pulse Ox O2 Delivery O2 Flow Rate FiO2 03/21/20 00:14 97.8 113 20 142/92 93 Home Meds Active Scripts Nitroglycerin (NITRO-BID) 1 Gm Oint...g., 1 GM TOP Q12HR for 14 Days, #10 GM Prov:SATISH PERKINS AUDIO/VIDEO TECHNICIAN 07/18/16 Famotidine (PEPCID) 20 Mg Tablet, 20 MG PO ACB for 30 Days Prov:CHRISTINA WELLS AUDIO/VIDEO TECHNICIAN 08/31/15 Reported Medications Lisinopril (LISINOPRIL) 10 Mg Tablet, 10 MG PO DAILY, #30 TAB 09/13/16 Furosemide (FUROSEMIDE) 40 Mg Tablet, 40 MG PO BID, #30 TAB 09/13/16 Aspirin (ASPIRIN) 325 Mg Tablet, 325 MG PO DAILY, TAB 07/15/16 Potassium Chloride (POTASSIUM CHLORIDE) 10 Meq Tab.er.prt, 10 MEQ PO BID, TAB 07/15/16 Atorvastatin Calcium (ATORVASTATIN CALCIUM) 20 Mg Tablet, 20 MG PO 2100, TAB 03/20/15 IZAIAH FISHER MD Mar 21, 2020 01:36
[2020-03-21 02:08] LABS: BASOPHILS % 0.6 % (0.0-1.0); EOSINOPHILS # (AUTO) 0.1 (0.0-0.4); EOSINOPHILS % 1.2 % (0.0-6.0); LYMPHOCYTES # (AUTO) 2.1 (1.0-3.2); LYMPHOCYTES % 32.4 % (18.0-39.1); MEAN CORPUSCULAR HEMOGLOBIN 26.5 pg (28-32); MEAN CORPUSCULAR VOLUME 82.9 fL (81-99); MONOCYTES # (AUTO) 0.6 (0.2-0.8); MONOCYTES % 8.6 % (4.4-11.3); NEUTROPHILS # (AUTO) 3.7 (2.1-6.9); PLATELET COUNT 264 x10e3/uL (140-360); RED BLOOD COUNT 6.03 x10e6/uL (4.3-5.7); RED CELL DISTRIBUTION WIDTH 16.9 % (11.7-14.4)
[2020-03-21 02:28] LABS: ALANINE AMINOTRANSFERASE 32 IU/L (0-55); ALBUMIN 3.9 g/dL (3.5-5.0); ALBUMIN/GLOBULIN RATIO 0.8 (0.8-2.0); ALKALINE PHOSPHATASE 76 IU/L (40-150); ANION GAP 16.6 mmol/L (8-16); BLOOD UREA NITROGEN 13 mg/dL (7-26); BUN/CREATININE RATIO 16 (6-25); CALCIUM 9.5 mg/dL (8.4-10.2); CARBON DIOXIDE 28 mmol/L (22-29); CHLORIDE 98 mmol/L (98-107); CREATINE KINASE 249 IU/L (30-200); CREATININE, SERUM 0.79 mg/dL (0.72-1.25); EST GLOMERULAR FILTRATION RATE > 60 ML/MIN (60-); GLUCOSE 103 mg/dL (74-118); POTASSIUM 4.6 mmol/L (3.5-5.1); SODIUM 138 mmol/L (136-145)
--- NOTE | 2020-03-21 03:42 | Diagnostic Imaging Report ---
EXAMINATION: CHEST SINGLE (PORTABLE) INDICATION: Palpitations COMPARISON: Abdominal CT 01/17/2018, chest x-ray 03/21/2018 FINDINGS: TUBES and LINES: None. LUNGS: Normal lung volumes. Subtle perihilar/lower lung haziness PLEURA: No pleural effusion or pneumothorax. HEART AND MEDIASTINUM: The cardiomediastinal silhouette is mildly enlarged, may be due to technique. BONES AND SOFT TISSUES: No acute osseous lesion. Soft tissues are unremarkable. UPPER ABDOMEN: No free air under the diaphragm. IMPRESSION: Lung field evaluation is limited due to suboptimal technique and patient body habitus. Subtle perihilar/lower lung haziness can be due to airspace disease or extrathoracic soft tissue attenuation. Signed by: Stef Mittal DO on 03/21/2020 3:38 AM
[2020-03-21 06:00] VITALS: BP 114/92
== END 2020-03-21 06:25 | disposition home or self-care (01) ==
LOC: ER 00:06
DX: R00.2 Palpitations (principal); I10 Essential (primary) hypertension; E78.5 Hyperlipidemia, unspecified; I50.9 Heart failure, unspecified; I48.91 Unspecified atrial fibrillation; I25.10 Atherosclerotic heart disease of native coronary artery without angina pectoris; K21.9 Gastro-esophageal reflux disease without esophagitis; Q74.8 Other specified congenital malformations of limb(s)
CPT/HCPCS: 36415; 71045; 80053; 82550; 82553; 83880; 84484; 85025; 85379; 93005; 99284

== ENCOUNTER 2020-04-16 04:23 | Emergency (ER) | payer OTHER ==
[~2020-04-16] VITALS: Ht 144.8 cm; Wt 71.2 kg
[2020-04-16] MEDS ORDERED: ACETAMINOPHEN 325 MG TAB PO ONE (04:45)
[2020-04-16] MEDS ORDERED: ACETAMINOPHEN 325 MG TAB ONE (04:48)
--- NOTE | 2020-04-16 04:58 | Emergency Department Note ---
History of Present Illnes History of Present Illness Chief Complaint: COVID PUI History of Present Illness This is a 34 year old male COMES IN FOR BODY ACHES, FEVER, AND COUGH FOR THE PAST 2 DAYS. DENIES SHORTNESS OF BREATH, OR CHEST PAIN. ALSO C/O BACK PAIN . Historian: Patient Arrival Mode: Car Onset (how long ago): day(s) (2) Location: BACK Quality: FEVER, CHILLS, COUGH, BACK PAIN Radiation: Reports non-radiation Severity: mild Onset quality: gradual Duration (how long): day(s) (2) Timing of current episode: constant Progression: unchanged Chronicity: new Context: Reports recent illness (FEVER) Relieving factors: none Exacerbating factors: none Associated symptoms: Reports cough (DRY, NON PRODUCTIVE), Reports fever/chills, Reports other (BACK PAIN) Past Medical/Family History Physician Review I have reviewed the patient's past medical and family history. Any updates have been documented here. Past Medical History Recent Fever: Yes Clinical Suspicion of Infectio: No New/Unexplained Change in Ment: No Past Medical History: Hypertension, CHF, A-Fib, CAD, GERD, Hyperlipedemia Other Medical History: PERERA SYNDROME PNEUMONIA TACHYCARDIA Other Surgery: RT KNEE SX, HEART SURGERY AT WITH BALLOON PLACEMENT Social History Smoking Cessation: Never Smoker Counseling Performed: No Alcohol Use: None Any Illegal Drug Use: No Other Last Tetanus: Unknown Review of Systems Review of Systems Constitutional: Reports as per HPI EENTM: Reports no symptoms Cardiovascular: Reports no symptoms Respiratory: Reports no symptoms Gastrointestinal: Reports no symptoms Genitourinary: Reports no symptoms Musculoskeletal: Reports as per HPI Integumentary: Reports no symptoms Neurological: Reports no symptoms Psychological: Reports no symptoms Endocrine: Reports no symptoms Hematological/Lymphatic: Reports no symptoms Physical Exam Related Data Allergies: Coded Allergies: No Known Allergies (Unverified , 03/21/18) Triage Vital Signs Vital Signs Date Time Temp Pulse Resp B/P (MAP) Pulse Ox O2 Delivery O2 Flow Rate FiO2 04/16/20 04:39 102.4 109 22 143/91 95 Room Air Vital signs reviewed: Yes Physical Exam CONSTITUTIONAL Constitutional: Present well-developed, Present well-nourished HENT HENT: Present normocephalic, Present atraumatic, Present oropharynx clear/moist, Present nose normal HENT L/R: Present left ext ear normal, Present right ext ear normal EYES Eyes: Reports PERRL, Reports conjunctivae normal NECK Neck: Present ROM normal PULMONARY Pulmonary: Present effort normal, Present breath sounds normal CARDIOVASCULAR Cardiovascular: Present regular rhythm, Present heart sounds normal, Present capillary refill normal, Present normal rate GASTROINTESTINAL Abdominal: Present soft, Present nontender, Present bowel sounds normal GENITOURINARY Genitourinary: Present exam deferred SKIN Skin: Present warm, Present dry MUSCULOSKELETAL Musculoskeletal: Present ROM normal NEUROLOGICAL Neurological: Present alert, Present oriented x 3, Present no gross motor or sensory deficits PSYCHOLOGICAL Psychological: Present mood/affect normal, Present judgement normal Results Laboratory Laboratory Laboratory Tests Test 04/16/20 04:50 Urine Color Yellow (YELLOW) Urine Clarity Clear (CLEAR) Urine pH 7 (5 - 7) Urine Specific [place] >=1.030 (1.010-1.025) Urine Protein Trace (NEGATIVE) Urine Glucose (UA) Negative (NEGATIVE) Urine Ketones Negative (NEGATIVE) Urine Blood Negative (NEGATIVE) Urine Nitrite Negative (NEGATIVE) Urine Bilirubin Negative (NEGATIVE) Urine Urobilinogen 0.2 mg/dL (0.2 - 1) Urine Leukocyte Esterase Negative (NEGATIVE) Urine RBC 0-5 /HPF (0-5) Urine WBC 0-5 /HPF (0-5) Urine Epithelial Cells None /LPF (NONE) Urine Bacteria None /HPF (NONE) Urine Mucus Few (RARE) Lab results reviewed: Yes Assessment & Plan Medical Decision Making MDM PT WITH VIRAL SYNDROME/COVID 19 SYMPTOMS BUT ALSO WITH BACK PAIN TYLENOL 975 MG PO ORDERED UA ORDERED TO EVAL FOR UTI PT DISCHARGED WITH [facility], INSTRUCTIONS ON CONTACTING [facility] TO OBTAIN A COVID 19 TEST, INSTRUCTED TO SELF QUARANTINE FOR NEXT 14 DAYS, AND GIVEN INSTRUCTIONS ON LAYING AND SLEEPING ON SIDES AND STOMACH, NOT HIS BACK Reassessment Reassessment time: 06:24 Reassessment TEMP 101.1, RR 18, OXYGEN SATURATION 98% ON ROOM AIR, PT WITHOUT RESPIRATORY DISTRESS. Assessment & Plan Final Impression: (1) Suspected 2019 novel coronavirus infection (2) Fever Depart Disposition: HOME, SELF-CARE Last Vital Signs Date Time Temp Pulse Resp B/P (MAP) Pulse Ox O2 Delivery O2 Flow Rate FiO2 04/16/20 04:39 102.4 109 22 143/91 95 Room Air Home Meds Active Scripts Nitroglycerin (NITRO-BID) 1 Gm Oint...g., 1 GM TOP Q12HR for 14 Days, #10 GM Prov:SATISH PERKINS HOT STONE SETTER 07/18/16 Famotidine (PEPCID) 20 Mg Tablet, 20 MG PO ACB for 30 Days Prov:CHRISTINA WELLS HOT STONE SETTER 08/31/15 Reported Medications Lisinopril (LISINOPRIL) 10 Mg Tablet, 10 MG PO DAILY, #30 TAB 09/13/16 Furosemide (FUROSEMIDE) 40 Mg Tablet, 40 MG PO BID, #30 TAB 09/13/16 Aspirin (ASPIRIN) 325 Mg Tablet, 325 MG PO DAILY, TAB 07/15/16 Potassium Chloride (POTASSIUM CHLORIDE) 10 Meq Tab.er.prt, 10 MEQ PO BID, TAB 07/15/16 Atorvastatin Calcium (ATORVASTATIN CALCIUM) 20 Mg Tablet, 20 MG PO 2100, TAB 03/20/15 Medications in the ED Acetaminophen 975 mg STK-MED ONCE .ROUTE ; Start 04/16/20 at 04:48; Stop 04/16/20 at 04:42; Status DC Acetaminophen 975 mg ONCE ONCE PO Last administered on 04/16/20at 04:44; Admin Dose 975 MG; Start 04/16/20 at 04:45; Stop 04/16/20 at 04:46; Status UNV IZAIAH FISHER MD Apr 16, 2020 04:58
[2020-04-16 05:16] LABS: COLOR,URINE YELLOW (YELLOW)
[2020-04-16 05:17] LABS: BILIRUBIN,URINE NEGATIVE (NEGATIVE); CLARITY,URINE CLEAR (CLEAR); KETONES,URINE NEGATIVE (NEGATIVE); LEUKOCYTE ESTERASE ,URINE NEGATIVE (NEGATIVE); NITRITE,URINE NEGATIVE (NEGATIVE); PROTEIN,URINE DIPSTICK TRACE (NEGATIVE); URINE UROBILINOGEN 0.2 mg/dL (0.2 - 1)
[2020-04-16 05:24] LABS: MUCUS,URINE FEW (RARE); RBC,URINE 0-5 /HPF (0-5); WBC,URINE (MAN) 0-5 /HPF (0-5)
[2020-04-16] MEDS ORDERED: IBUPROFEN 600 MG TAB PO STA (05:37)
== END 2020-04-16 06:34 | disposition home or self-care (01) ==
LOC: ER 04:36
DX: B34.9 Viral infection, unspecified (principal); R50.9 Fever, unspecified; R05 Cough; M54.9 Dorsalgia, unspecified; I10 Essential (primary) hypertension; I50.9 Heart failure, unspecified; E78.5 Hyperlipidemia, unspecified; I25.10 Atherosclerotic heart disease of native coronary artery without angina pectoris; K21.9 Gastro-esophageal reflux disease without esophagitis; Q74.8 Other specified congenital malformations of limb(s)
CPT/HCPCS: 81001; 99283

== ENCOUNTER 2021-09-27 23:17 | Emergency (ER) | payer OTHER ==
[~2021-09-27] VITALS: Ht 144.8 cm; Wt 71.2 kg
== END 2021-09-28 01:11 | disposition home or self-care (01) ==
LOC: ER 23:22
DX: Z46.4 Encounter for fitting and adjustment of orthodontic device (principal); I11.0 Hypertensive heart disease with heart failure; I50.9 Heart failure, unspecified; Q74.8 Other specified congenital malformations of limb(s); I48.91 Unspecified atrial fibrillation; I25.10 Atherosclerotic heart disease of native coronary artery without angina pectoris; K21.9 Gastro-esophageal reflux disease without esophagitis; E78.5 Hyperlipidemia, unspecified
CPT/HCPCS: 99284